=== PATIENT | female | born 1950 | race Caucasian/White ===

== ENCOUNTER 2020-10-30 05:20 | Observation (INO) ==
--- NOTE | 2020-09-29 13:12 | PAT Medication Instructions ---
Medication Instructions Date of Service September 29, 2020 Home Medications aspirin 81 mg PO QAM lisinopril 10 mg PO QAM pravastatin 20 mg PO QAM ascorbic acid (vitamin C) [Vitamin C] 500 mg PO QAM loratadine 10 mg PO QAM multivitamin 1 tab PO QAM DO NOT take the morning of surgery lisinopril 10 mg PO QAM ascorbic acid (vitamin C) [Vitamin C] 500 mg PO QAM loratadine 10 mg PO QAM multivitamin 1 tab PO QAM Take morning of surgery With a small sip of water, OTHERWISE NOTHING TO EAT OR DRINK AFTER MIDNIGHT: aspirin 81 mg PO QAM pravastatin 20 mg PO QAM Other Notes If you have any questions please call us at [phone] or [phone] or [phone] or [phone]
--- NOTE | 2020-10-01 14:04 | Anesthesiology Consultation ---
Date of Service October 01, 2020 Assessment & Plan (1) Encounter for pre-operative examination: Chart Review Chart Review: Acceptable Risk for Surgery (pending surgeon ordered PCP clearance and preop Covid testing ) and Patient seen in Pre Admission Testing Awaiting surgeon ordered PCP clearance scheduled 10/03/20 Per PAT appt on 10/01/20, patient denies any recent travel. No known Covid positive contacts or Covid related symptoms. No known Covid infection in the past 90 days. Did have Covid infection May 2020 (cold symptoms- have since resolved). Preop Covid testing scheduled 10/24/20= will await results. Educated on importance of self quarantining, social distancing and wearing mask in public both for the patient and household contacts. Teaching & Discussion Pre-Anesthesia Teaching/Discussion Notes: Instructed NPO after midnight before s urgery,except medications with 15 cc of water. Medication instructions provided according to the PAT guidelines. History Surgery Operation Date: 10/30/20 13:00 Proposed Procedures p Right Total Knee Arthroplasty - Martínez Palma MD Height/Weight Height: 4 ft 11 in Weight: 75.3 kg Allergies Allergy/AdvReac Type Severity Reaction Status Date / Time Sulfa (Sulfonamide Allergy Severe Hives Verified 09/29/20 07:33 Antibiotics) latex Allergy Intermediate Blister Verified 09/29/20 07:33 Medications Home Medications Medication Instructions Recorded Confirmed Last Taken aspirin 81 mg PO QAM 11/09/18 09/29/20 11/08/18 lisinopril 10 mg PO QAM 11/09/18 09/29/20 11/08/18 pravastatin 20 mg PO QAM 11/09/18 09/29/20 11/08/18 ascorbic acid (vitamin C) [Vitamin 500 mg PO QAM 09/29/20 09/29/20 Unknown C] loratadine 10 mg PO QAM 09/29/20 09/29/20 Unknown multivitamin 1 tab PO QAM 09/29/20 09/29/20 Unknown Past Medical History Medical History (Updated 10/01/20 @ 14:29 by Nicolasa Rodgers PA-C) History of COVID-May 27, 2020 Symptoms did improve- pt having mild cold symptoms since 09/22/20- improving Hyperlipidemia Hypertension Nausea and vomiting after administration of anesthetic agent just with hysterectomy Sleep apnea Questionable - pt was referred by dentist to get sleep study - does have snoring Will be seeing sleep medicine for initial evaluation end of September 2020 Exercise / Class Metabolic Activity II 4-5 Yardwork/Stairs/Walk up hill (one flight of stairs - no chest pain or SOB ) Past Family History Family History Other Family history unknown Past Surgical History Surgical History History of colonoscopy History of hysterectomy History of tooth extraction Hx of removal of cyst from thumb/neck> both benign Past Anesthesia History No Hx of Anesthesia Complications (with exception to hysterectomy - had PONV ) and Other (FH is unknown ) History of PONV History of PONV (with hysterectomy ) and Hx of Motion Sickness (in the past - improved with glasses ) Social History Smoking Status: Never smoker Do You Dip or Chew Tobacco: No Hx Alcohol Use: No Hx Substance Use: No substance use type: does not use Review of Systems Nasal congestion, post nasal drip, cough x 5-6 days- mild - improving. Patient denies chest pain, shortness of breath, dyspnea on exertion, reflux, wheezing, palpitations. No hx of seizures, stroke, [place]. No hx of blood clots or blood transfusions Physical Exam Vital Signs VITALS BP 165/101 (usually under better control- patient will monitor at home- has follow up with PCP 10/03/20) P 90 TEMP 98.6 SP02 98% RESP 16 Constitutional no acute distress ENMT Mouth: no TMJ clicking Thyromental Distance: < 3.5 Finger Breadths (3.0) Mallampati Class: II Missing molars Capped on molars Neck neck extension not limited Respiratory normal respiratory effort; no respiratory distress Auscultation: lungs clear to auscultation bilaterally; no wheezes Cardiovascular Rate/Rhythm: regular rate and regular rhythm Heart Sounds: no murmur Vessels: no carotid bruit Musculoskeletal Spine: no pain with cervical ROM Extremities: extremities normal to inspection Psychiatric Orientation: alert Testing Laboratory Results 10/01/20 14:26 10/01/20 14:26 PT 10.2 Seconds (9.0-12.0) 10/01/20 14:26 INR 1.0 (0.9-1.1) 10/01/20 14: APTT 25.3 Seconds (21.0-31.0) 10/01/20 14:26 Hemoglobin A1c 5.8 % (4.5-5.6) H 10/01/20 14:26 Urine Color Yellow 10/01/20 14:26 Urine Appearance Clear (Clear) 10/01/20 14:26 Urine pH 5.0 (4.5-7.5) 10/01/20 14:26 Ur Specific [place] 1.014 (1.000-1.030) 10/01/20 14:26 Urine Protein Negative (Negative) 10/01/20 14:26 Urine Glucose (UA) Negative (Negative) 10/01/20 14: Urine Ketones Negative (Negative) 10/01/20 14: Urine Nitrite Negative (Negative) 10/01/20 14:26 Ur Leukocyte Esterase Negative (Negative) 10/01/20 14:26 Blood Type O Positive 10/01/20 14:26 Antibody Screen NEGATIVE 10/01/20 14:26 Electrocardiogram Date: 10/01/20 Findings: + NSR @ (79bpm) Nonspecific T wave abnormality. Chest X-Ray Date: 10/01/20 Findings: + NAD There is mild aortic tortuosity.
--- NOTE | 2020-10-01 14:52 | XRay Report ---
XR chest Pre-admission PA/Lat CLINICAL HISTORY: Preoperative chest COMPARISON STUDY: No previous studies for comparison. FINDINGS: The cardiac and mediastinal contours are normal. There is mild aortic tortuosity. There is no failure. There is no focal pulmonary consolidation. There are no pleural effusions. Degenerative c hanges are present within the spine.[ IMPRESSION: No active disease in the chest. ACT 112: Negative or not required by law. Electronically signed by: Freeman Cooper M.D. 10/01/2020 2:51 PM
[2020-10-01 15:59] LABS: Appearance Urine Clear (Clear); Bilirubin Urine Negative (Negative); Blood Urine Negative (Negative); Color Urine Yellow; Glucose Urine UA Negative (Negative); Ketones Urine Negative (Negative); Leukocyte Esterase Urine Negative (Negative); Nitrite Urine Negative (Negative); Protein Urine Negative (Negative); Specific Gravity Urine 1.014 (1.000-1.030); Urobilinogen Urine Negative (Negative)
[2020-10-01 16:02] LABS: Basophils # (auto) 0.02 K/uL (0-0.2); Basophils % (auto) 0.5 %; Eosinophils # (auto) 0.11 K/uL (0-0.5); Eosinophils % (auto) 2.5 %; Hematocrit (blood only) 38.7 % (37-47); Hemoglobin 12.8 g/dL (12.0-16.0); Lymphocytes # (auto) 1.05 K/uL (1.2-3.4); Lymphocytes % (auto) 23.7 %; Mean Corpuscular Hemoglobin 28.2 pg (25-34); Mean Corpuscular Hgb Conc 33.1 g/dL (32-36); Mean Corpuscular Volume 85.2 fL (80-100); Mean Platelet Volume 9.9 fL (7.4-10.4); Monocytes # (auto) 0.29 K/uL (0.11-0.59); Monocytes % (auto) 6.5 %; Neutrophils # (auto) 2.96 K/uL (1.4-6.5); Neutrophils % (auto) 66.8 %; Platelet Count 209 K/uL (130-400); RDW Coefficient of Variation 13.2 % (11.5-14.5); RDW Standard Deviation 40.8 fL (36.4-46.3); Red Blood Count 4.54 M/uL (4.2-5.4); White Blood Count 4.43 K/uL (4.8-10.8)
[2020-10-01 16:07] LABS: Partial Thromboplastin Time 25.3 Seconds (21.0-31.0); Prothrombin Time 10.2 Seconds (9.0-12.0)
[2020-10-01 16:16] LABS: Albumin Level 3.8 gm/dl (3.4-5.0); BUN Creatinine Ratio 18.7 (10-20); Calcium 9.7 mg/dl (8.5-10.1); Creatinine Clr Calc Pharmacy 61.9 ml/min; Est GFR (Non-African American) 79.3 ml/min; Potassium 4.3 mmol/L (3.5-5.1)
[2020-10-02 06:10] LABS: Estimated Average Glucose 120 mg/dl; Hemoglobin A1C 5.8 % (4.5-5.6)
--- NOTE | 2020-10-02 22:22 | Electrocardiogram Report ---
Test Reason : Blood Pressure : / mmHG Vent. Rate : 079 BPM Atrial Rate : 079 BPM P-R Int : 156 ms QRS Dur : 084 ms QT Int : 386 ms P-R-T Axes : 058 054 065 degrees QTc Int : 442 ms Normal sinus rhythm Nonspecific T wave abnormality Abnormal ECG No previous ECGs available Confirmed by Breezy Cobb ([id number]) on 10/02/2020 10:22:36 PM Referred By: Martínez Palma Confirmed By:Breezy Cobb
--- NOTE | 2020-10-28 21:21 | History & Physical Report ---
Date of Service October 28, 2020 Assessment & Plan (1) Primary osteoarthritis of right knee: Treatment options discussed with patient. She has severe endstage OA right knee. She has failed conservative measures and would like to proceed with surgical intervention. Risks, benefits and alternatives to surgery including but not limited to infection, DVT, pain, stiffness, need for revision surgery, damage to blood vessels, damage to nerves, PE, , were discussed with the patient and they wish to proceed. Plan on right total knee arthroplasty at [facility] on 10/30/[address] Palma. Will plan on ASA 81g BID x 1 mo for DVT prophylaxis, as well as HHPT post discharge. All questions answered. F/u post operatively. History of Present Illness Chief Complaint: Right knee pain Primary Care Provider: Jimmy Ferreira MD 70 year old female with PMHx significant for HTN, high cholesterol, Raynaud's who presents with ongoing right knee pain and severe osteoarthritis right knee with bone loss. She has failed conservative measures. Pain interfering with her daily activities and ability to carry out leisure activities. She would like to proceed with surgical intervention. Patient denies headaches, sweats, fevers, chills, double vision, blurred vision, cough, sore throat, dysphagia, chest pain, sob, wheezing, n/v/d/c, numbness, tingling, fatigue, urinary symptoms, mood disorders. ROS positive for right knee pain and stiffness. Allergies Allergy/AdvReac Type Severity Reaction Status Date / Time Sulfa (Sulfonamide Allergy Severe Hives Verified 09/29/20 07:33 Antibiotics) latex Allergy Intermediate Blister Verified 09/29/20 07:33 Home Medications Medication Instructions Recorded Confirmed Type aspirin 81 mg PO QAM 11/09/18 09/29/20 History lisinopril 10 mg PO QAM 11/09/18 09/29/20 History pravastatin 20 mg PO QAM 11/09/18 09/29/20 History ascorbic acid (vitamin C) [Vitamin 500 mg PO QAM 09/29/20 09/29/20 History C] loratadine 10 mg PO QAM 09/29/20 09/29/20 History multivitamin 1 tab PO QAM 09/29/20 09/29/20 History Past Med/Surg History Medical History (Updated 10/28/20 @ 21:13 by Anmol Smaniotto) Elevated glucose Per records History of COVID-19 May 27, 2020 Symptoms did improve- pt having mild cold symptoms since 09/22/20- improving Hyperlipidemia Hypertension Nausea and vomiting after administration of anesthetic agent just with hysterectomy Raynauds syndrome Per records Sleep apnea Questionable - pt was referred by dentist to get sleep study - does have snoring Will be seeing sleep medicine for initial evaluation end of September 2020 Surgical History History of colonoscopy History of hysterectomy History of tooth extraction Hx of removal of cyst from thumb/neck> both benign Family History Other Family history unknown Social History Smoking Status: Never smoker Second Hand Exposure: No; Hx Alcohol Use: No Hx Substance Use: No Preferred Language: Faroese Communication Ability: Effective Label Remover Required: No Beliefs That Will Affect Care: None Current Living Situation: Spouse Feels Safe at Home: Yes Assistive Devices: Glasses Review of Systems All systems reviewed & are unremarkable except as noted in HPI & below Physical Exam Constitutional: well developed and well nourished; no acute distress Eyes: PERRL, conjunctivae normal, anicteric sclerae ENMT: external ear and nose normal, oropharynx normal Neck: trachea midline, no thyromegaly Respiratory: normal respiratory effort, lungs clear to auscultation Cardiovascular: RRR, no murmur, no edema Musculoskeletal: Right knee: Valgus alignment. Moderate effusion. Lateral joint line tenderness. Positive valgus stress, positive Kathy's. ROM 5-90 degrees. Skin: no rashes, warm and dry Neurologic: patellar DTR's 2+ bilat, sensation intact Psychiatric: A+Ox3, euthymic affect Results & Data ([facility]) Laboratory Results Lab Results 10/01/20 10/01/20 10/01/20 Range/Units 14:26 14:26 14:26 WBC 4.43 L (4.8-10.8) K/uL RBC 4.54 (4.2-5.4) M/uL Hgb 12.8 (12.0-16.0) g/dL Hct 38.7 (37-47) % MCV 85.2 (80-100) fL MCH 28.2 (25-34) pg MCHC 33.1 (32-36) g/dL RDW Std Deviation 40.8 (36.4-46.3) fL RDW Coeff of Erika 13.2 (11.5-14.5) % Plt Count 209 (130-400) K/uL MPV 9.9 (7.4-10.4) fL Immature Gran % (Auto) 0.0 % Neut % (Auto) 66.8 % Lymph % (Auto) 23.7 % [place] % (Auto) 6.5 % Eos % (Auto) 2.5 % Baso % (Auto) 0.5 % Neut # (Auto) 2.96 (1.4-6.5) K/uL Lymph # (Auto) 1.05 L (1.2-3.4) K/uL [place] # (Auto) 0.29 (0.11-0.59) K/uL Eos # (Auto) 0.11 (0-0.5) K/uL Baso # (Auto) 0.02 (0-0.2) K/uL Immature Gran # (Auto) 0.00 (0.00-0.02) K/uL PT (9.0-12.0) Seconds INR (0.9-1.1) APTT (21.0-31.0) Seconds PTT Ratio Sodium 143 (136-145) mmol/L Potassium 4.3 (3.5-5.1) mmol/L Chloride 110 H (98-107) mmol/L Carbon Dioxide 29 (21-32) mmol/L Anion Gap 4.0 (3-11) BUN 14 (7-18) mg/dl Creatinine 0.77 (0.6-1.2) mg/dl Est Cr Clr Drug Dosing 61.9 ml/min Est GFR ( Amer) 92.0 ml/min Est GFR (Non-Af Amer) 79.3 ml/min BUN/Creatinine Ratio 18.7 (10-20) Glucose 149 H (70-99) mg/dl Estimat Average Glucose mg/dl Hemoglobin A1c (4.5-5.6) % Calcium 9.7 (8.5-10.1) mg/dl Albumin 3.8 (3.4-5.0) gm/dl Urine Color Urine Appearance (Clear) Urine pH (4.5-7.5) Ur Specific [place] (1.000-1.030) Urine Protein (Negative) Urine Glucose (UA) (Negative) Urine Ketones (Negative) Urine Blood (Negative) Urine Nitrite (Negative) Urine Bilirubin (Negative) Urine Urobilinogen (Negative) Ur Leukocyte Esterase (Negative) Blood Type O Positive Antibody Screen NEGATIVE 10/01/20 10/01/20 10/01/20 Range/Units 14:26 14:26 14:26 WBC (4.8-10.8) K/uL RBC (4.2-5.4) M/uL Hgb (12.0-16.0) g/dL Hct (37-47) % MCV (80-100) fL MCH (25-34) pg MCHC (32-36) g/dL RDW Std Deviation (36.4-46.3) fL RDW Coeff of Erika (11.5-14.5) % Plt Count (130-400) K/uL MPV (7.4-10.4) fL Immature Gran % (Auto) % Neut % (Auto) % Lymph % (Auto) % [place] % (Auto) % Eos % (Auto) % Baso % (Auto) % Neut # (Auto) (1.4-6.5) K/uL Lymph # (Auto) (1.2-3.4) K/uL [place] # (Auto) (0.11-0.59) K/uL Eos # (Auto) (0-0.5) K/uL Baso # (Auto) (0-0.2) K/uL Immature Gran # (Auto) (0.00-0.02) K/uL PT 10.2 (9.0-12.0) Seconds INR 1.0 (0.9-1.1) APTT 25.3 (21.0-31.0) Seconds PTT Ratio 1.0 Sodium (136-145) mmol/L Potassium (3.5-5.1) mmol/L Chloride (98-107) mmol/L Carbon Dioxide (21-32) mmol/L Anion Gap (3-11) BUN (7-18) mg/dl Creatinine (0.6-1.2) mg/dl Est Cr Clr Drug Dosing ml/min Est GFR ( Amer) ml/min Est GFR (Non-Af Amer) ml/min BUN/Creatinine Ratio (10-20) Glucose (70-99) mg/dl Estimat Average Glucose 120 mg/dl Hemoglobin A1c 5.8 H (4.5-5.6) % Calcium (8.5-10.1) mg/dl Albumin (3.4-5.0) gm/dl Urine Color Yellow Urine Appearance Clear (Clear) Urine pH 5.0 (4.5-7.5) Ur Specific [place] 1.014 (1.000-1.030) Urine Protein Negative (Negative) Urine Glucose (UA) Negative (Negative) Urine Ketones Negative (Negative) Urine Blood Negative (Negative) Urine Nitrite Negative (Negative) Urine Bilirubin Negative (Negative) Urine Urobilinogen Negative (Negative) Ur Leukocyte Esterase Negative (Negative) Blood Type Antibody Screen Diagnostic Findings Right knee: Four-view x-rays right knee demonstrate he has severe bilateral knee osteoarthritis. The right knee has valgus alignment, 12-15 degrees of valgus. He is bone on bone on the lateral compartment with subluxation of the femur medially on the tibia, tricompartmental osteoarthritis, loose bodies in the superior compartment. The patella is laterally aligned, bone on bone in the patellofemoral joint as well. She has some osteopenia of the bones.
[2020-10-30] MEDS ORDERED: LR 500ML BOLUS, THEN 15ML/HR IV SCH (06:00)
[2020-10-30] MEDS ORDERED: dexAMETHasone 4 MG TAB PO SCH (06:00)
[2020-10-30] MEDS ORDERED: ACETAMINOPHEN 500 MG TAB PO SCH (06:00)
[2020-10-30] MEDS ORDERED: FAMOTIDINE 20 MG TAB PO SCH (06:00)
[2020-10-30] MEDS ORDERED: TRANEXAMIC ACID 1,000 MG **IV Pre-op IV SCH (06:00)
[2020-10-30] MEDS ORDERED: ROPIVACAINE 0.5% HCL/PF 150 MG, BUPIVACAINE 0.75% MPF 20 ML, EPINEPHrine 30MG/30ML (OR ... INSTIL SCH (06:00)
[2020-10-30] MEDS ORDERED: METOCLOPRAMIDE HCL 10 MG TABLET PO SCH (06:00)
[2020-10-30] MEDS ORDERED: GABAPENTIN 300 MG CAP PO SCH (06:00)
[2020-10-30] MEDS ORDERED: TRANEXAMIC ACID 1,000 MG **IV Intra-op IV SCH (06:00)
[2020-10-30] MEDS ORDERED: fentaNYL citrate 100 MCG/2 ML VIAL ONE (06:23)
[2020-10-30] MEDS ORDERED: MIDAZOLAM HCL 1 MG/ML 2ML VIAL ONE (06:23)
[2020-10-30] MEDS ORDERED: DEXAMETHASONE SOD INJ 4 MG/ML VIAL ONE (06:25)
[2020-10-30] MEDS ORDERED: EPINEPHrine INJ 1 MG/ML AMP ONE (06:25)
[2020-10-30] MEDS ORDERED: BUPIVACAINE 0.25% 30 ML VIAL ONE (06:25)
[2020-10-30] MEDS ORDERED: BUPIVACAINE 0.5 % 5 MG/1 ML PF 10ML VIAL ONE (06:25)
[2020-10-30] MEDS ORDERED: ORTHO JOINT ANESTHETIC ONE (06:37)
--- NOTE | 2020-10-30 07:00 | History & Physical Bridge Note ---
Date of Service October 30, 2020 History & Physical Bridge Note I have examined the patient, reviewed the History & Physical and in the interval since the performance of the History & Physical I have noted the following changes of clinical significance: no changes noted
[2020-10-30] MEDS: ceFAZolin 1000MG 1,000 MG/7.5 ML SYR IV SCH ×4 (07:18→23:32)
[2020-10-30] MEDS ORDERED: PROPOFOL IV EMULSION 10 MG/ML 20 ML VIAL IV ONE ×2 (07:30)
[2020-10-30] MEDS ORDERED: PHENYLEPHRINE HCL 10 MG/ML VIAL ONE (08:04)
--- NOTE | 2020-10-30 09:10 | Post Operative Brief Note ---
Immediate Post Op Note v1 Date of Surgery October 30, 2020 Pre & Post Diagnosis Operation Date: 10/30/20 07:00 Pre-Op Diagnosis: Right Knee Primary Osteoarthritis Post-Op Diagnosis: Right Knee Primary Osteoarthritis I identified the patient and participated in the time-out.: Yes Procedure Operation Date: 10/30/20 07:00 Actual Procedures p Right Total Knee Arthroplasty(Right) - Martínez Palma MD Surgeon Martínez Palma MD Hat Steamer Jose Carlos LEONARD Estimated Blood Loss 5 Findings Consistent with Post-Op Diagnosis Specimens Bone cuts Drains Hemovac Drain Anesthesia Type Spinal MAC Complications none Disposition Accompanied Patient To Recovery: No Disposition: Recovery Room Overlapping Procedure I was present for: the critical portions of procedure. Back up surgeon: was not required during procedure.
[2020-10-30] MEDS ORDERED: ePHEDrine sulfate 50 MG/ML AMP IV PRN (09:45)
[2020-10-30] MEDS ORDERED: ONDANSETRON INJ 2 MG/ML 2 ML VIAL IV PRN ×2 (09:45→11:41)
[2020-10-30] MEDS ORDERED: fentaNYL citrate 100 MCG/2 ML VIAL IV PRN (09:45)
[2020-10-30] MEDS ORDERED: ATROPINE SULFATE 0.1 MG/ML 10ML SYR IV PRN (09:45)
[2020-10-30] MEDS ORDERED: MEPERIDINE HCL 25 MG/ML CARP/VIAL ONE (10:03)
[2020-10-30] MEDS ORDERED: MEPERIDINE HCL 25 MG/ML CARP/VIAL IV ONE (10:09)
--- NOTE | 2020-10-30 11:00 | XRay Report ---
XR knee RT 1 or 2V routine HISTORY: 70 years-old Female Surgical Post Op right knee total joint arthroplasty COMPARISON: None TECHNIQUE: 2 views of the right knee FINDINGS: Right knee total joint arthroplasty with patellar resurfacing. Anterior midline skin kaylah are note d along with expected postsurgical soft tissue swelling and deep tissue air with surgical drainage ca theter. No acute fracture or opaque foreign body. IMPRESSION: Right knee total joint arthroplasty with expected postoperative changes. ACT 112: Negative or not required by law. The above report was generated using voice recognition software. It may contain grammatical, syntax o r spelling errors. Electronically signed by: Puneet Mojica M.D. 10/30/2020 10:59 AM
[2020-10-30] MEDS ORDERED: oxyCODONE HCL IR 5 MG TAB (IMMEDIATE RELEASE) PO PRN (11:41)
[2020-10-30] MEDS ORDERED: bisacodyL 10 MG SUPP PR PRN (11:41)
[2020-10-30] MEDS ORDERED: METOCLOPRAMIDE HCL INJ 5 MG/ML 2 ML VIAL IV PRN (11:41)
[2020-10-30] MEDS ORDERED: HYDROmorphone INJ 0.5 MG/0.5 ML SYR IV PRN (11:41)
[2020-10-30] MEDS ORDERED: NALOXONE HCL 0.4 MG/1 ML VIAL/CARP IV PRN (11:41)
[2020-10-30] MEDS ORDERED: MAGNESIUM HYDROXIDE SUSP 30 ML UDC PO PRN (11:41)
--- NOTE | 2020-10-30 13:13 | Consultation ---
Date of Consultation October 30, 2020 Assessment & Plan (1) Primary osteoarthritis of right knee: This is a 70-year-old female who has significant past medical history of HTN, HLD, Raynaud's, history of COVID-19, prediabetes, suspected TRAVIS currently undergoing evaluation who presents for elective R TKA by Dr. Palma. POD #0 s/p R TKA EBL 5; hemovac 30ml tolerated procedure well Pain/wound management per Ortho Activity and therapy as prescribed by Ortho Encourage incentive spirometry Monitor H&H, preop hemoglobin 12.8 (2) Hypertension: Continue lisinopril, will place hold parameters (3) Hyperlipidemia: Continue pravastatin (4) Prediabetes: Preop labs reveal A1c 5.8 Encourage lifestyle and diet modification (5) DVT prophylaxis: ASA twice daily per Ortho Dispo: Per attending Full code PCP: Jhon Patient was seen and examined in collaboration with Dr. Dinh, please see addendum Thank you for this consultation. We will follow the patient with you during their hospital stay. You can reach a member of the [facility] Hospitalist Team 13/12 via hospitalist role on tiger text. Supervising Physician Co-Signing Physician Notes Patient seen and examined by me, care coordinated with Hawa Baker PA-C, please refer to her note above for further detail. Pt is a 70 y/o female with HTN, HLD, Raynaud's, history of COVID-19, prediabetes, suspected TRAVIS (currently undergoing evaluation) who is now s/p right knee total arthroplasty by Dr. Palma. She currently denies fever, chills, sweats, lightheadedness, dizziness, chest pain, shortness of breath, cough, nausea, vomiting, abdominal pain. Currently sitting up in the chair, in no acute distress. Ambulated to the bathroom, she is urinating without difficulty. Ate lunch, denies any nausea afterwards. She is alert and oriented and answering questions appropriately. Lungs are clear to auscultation bilaterally without any wheezing rhonchi or crackles. Heart sounds regular. Abdomen soft, nontender nondistended, obese. Right lower extremity in dressings. Hypertension controlled on lisinopril. Hyperlipidemia controlled with pravastatin. She does take a baby aspirin daily for cardiac prophylaxis. We will monitor hemodynamic status and H&H. Connie Dinh MD History of Present Illness Requesting Physician: Dr. Palma Reason for Consultation: Post op med management Attending Physician: Martínez Palma MD History of Present Illness This is a 70-year-old female who has significant past medical history of HTN, HLD, Raynaud's, history of COVID-19, prediabetes, suspected TRAVIS currently undergoing evaluation who presents for elective right knee total arthroplasty by Dr. Palma. We have been consulted for postop medical management. She tolerated procedure well and offers no acute concerns. She denies fever, chills, sweats, lightheadedness, dizziness, chest pain, shortness of breath, cough, nausea, vomiting, abdominal pain. Prior to procedure she denies change in bowel or urinary habits. In regards patient hypertension it is controlled on lisinopril. Hyperlipidemia controlled with pravastatin. She does take a baby aspirin daily for cardiac prophylaxis. Allergies Allergy/AdvReac Type Severity Reaction Status Date / Time Sulfa (Sulfonamide Allergy Severe Hives Verified 09/29/20 07:33 Antibiotics) latex Allergy Intermediate Blister Verified 09/29/20 07:33 Home Medications Medication Instructions Recorded Confirmed Type aspirin 81 mg PO QAM 11/09/18 10/30/20 History lisinopril 10 mg PO QAM 11/09/18 10/30/20 History pravastatin 20 mg PO QAM 11/09/18 10/30/20 History ascorbic acid (vitamin C) [Vitamin 500 mg PO QAM 09/29/20 10/30/20 History C] loratadine 10 mg PO QAM 09/29/20 10/30/20 History multivitamin 1 tab PO QAM 09/29/20 10/30/20 History Patient History Medical History (Updated 10/30/20 @ 13:08 by Hawa Baker PA-C) Elevated glucose Per records History of COVID-19 May 27, 2020 Symptoms did improve- pt having mild cold symptoms since 09/22/20- improving Hyperlipidemia Hypertension Nausea and vomiting after administration of anesthetic agent just with hysterectomy Prediabetes Raynauds syndrome Per records Sleep apnea Questionable - pt was referred by dentist to get sleep study - does have snoring Will be seeing sleep medicine for initial evaluation end of September 2020 Surgical History History of colonoscopy History of hysterectomy History of tooth extraction Hx of removal of cyst from thumb/neck> both benign Family History Mother Myocardial infarction, Onset Age: 60 Cancer Uterine Father Colorectal cancer Social History Smoking Status: Never smoker Second Hand Exposure: No; Do You Dip or Chew Tobacco: No; Tobacco Cessation Education Requested by Patient: No Hx Alcohol Use: No Hx Substance Use: No Preferred Language: Portuguese Communication Ability: Effective Audio Production Instructor Required: No Beliefs That Will Affect Care: None marital status: Current Living Situation: Spouse Other Information That Helps Us Care for You: No Feels Safe at Home: Yes Safety Concerns: Feels Safe At This Time Assistive Devices: Walker Review of Systems Review of Systems: All systems reviewed & are unremarkable except as noted in HPI & below Physical Exam Physical Exam: Constitutional: WD/WN, vitals as above, NAD, sitting up in bed, pleasant, conversing easily Head: Normocephalic, Atraumatic Eyes: PERRL, conjunctivae normal, anicteric sclerae ENMT: external ear and nose normal, oropharynx normal Neck: trachea midline, no thyromegaly normal visual inspection Respiratory: normal respiratory effort, lungs clear to auscultation, no wheeze, rales, rhonchi. Normal insp/exp effort, no accessory muscle use Cardiovascular: RRR, no murmur, no edema Vessels: no JVD or carotid bruit Chest: normal inspection of chest Abdomen: normal bowel sounds, soft, nontender, no hepatosplenomegaly Musculoskeletal: no cyanosis or clubbing, R knee dressing CDI, hemovac in place, ice inplace, extremities motor strength 5/5 Skin: no rashes, warm and dry normal turgor Neurologic: PERRL, EOMI, accommodation nl, no face palsy, no dysarthria CN's II-XI intact bilaterally and moves all extremities Psychiatric: A+Ox3, euthymic affect Lymphatic: no cervical or axillary lymphadenopathy : deferred Results & Data ([facility]) Vital Signs (Past 12 Hours) Vital Signs Temp Pulse Pulse Resp BP Pulse Ox 10/30/20 11:45 36.5 C 79 16 121/73 100 10/30/20 11:15 36.4 C L 82 16 134/82 97 10/30/20 10:30 36.6 C 84 16 127/74 96 10/30/20 10:20 84 16 125/75 96 10/30/20 10:10 87 18 131/70 99 10/30/20 10:00 94 H 18 138/66 99 10/30/20 09:50 36.7 C 99 H 14 136/81 95 10/30/20 06:34 86 20 179/87 H 98 10/30/20 05:56 36.8 C 96 H 20 181/98 H 97 Laboratory Results Preoperative labs 10/01/2020 WBC 4.4k, H&H 12.8 and 30.7, platelet 209 Sodium 143, K4.3, chloride 110, BUN 14, creatinine 1.77 A1c 5.8 Diagnostic Findings Chest X-Ray 10/01/20 08:25 XR chest Pre-admission PA/Lat CLINICAL HISTORY: Preoperative chest COMPARISON STUDY: No previous studies for comparison. FINDINGS: The cardiac and mediastinal contours are normal. There is mild aortic tortuosity. There is no failure. There is no focal pulmonary consolidation. There are no pleural effusions. Degenerative changes are present within the spine.[ IMPRESSION: No active disease in the chest. ACT 112: Negative or not required by law. Electronically signed by: Freeman Cooper M.D. 10/01/2020 2:51 PM Knee X-Ray 10/30/20 09:53 XR knee RT 1 or 2V routine HISTORY: 70 years-old Female Surgical Post Op right knee total joint arthroplasty COMPARISON: None TECHNIQUE: 2 views of the right knee FINDINGS: Right knee total joint arthroplasty with patellar resurfacing. Anterior midline skin kaylah are noted along with expected postsurgical soft tissue swelling and deep tissue air with surgical drainage catheter. No acute fracture or opaque foreign body. IMPRESSION: Right knee total joint arthroplasty with expected postoperative changes. ACT 112: Negative or not required by law. The above report was generated using voice recognition software. It may contain grammatical, syntax or spelling errors. Electronically signed by: Puneet Mojica M.D. 10/30/2020 10:59 AM Medications Administered Medication List Acetaminophen (Acetaminophen 500 Mg Tab) 1,000 mg PO PREOP RUSSEL Stop: 10/30/20 18:00 Last Admin: 10/30/20 06:07 Dose: 1,000 mg Documented by: [id number] Dexamethasone (Dexamethasone 4 Mg Tab) 8 mg PO PREOP RUSSEL Stop: 10/30/20 18:00 Last Admin: 10/30/20 06:07 Dose: 8 mg Documented by: [id number] Famotidine (Famotidine 20 Mg Tab) 20 mg PO PREOP RUSSEL Stop: 10/30/20 18:00 Last Admin: 10/30/20 06:07 Dose: 20 mg Documented by: [id number] Gabapentin (Gabapentin 300 Mg Cap) 300 mg PO PREOP [facility]USSEL Stop: 10/30/20 18:00 Last Admin: 10/30/20 06:08 Dose: 300 mg Documented by: [id number] Cefazolin Sodium (Ancef 1000mg) 1,000 mg in 7.5 mls @ 2.5 mls/min IV PREOP RUSSEL; Protocol Stop: 10/30/20 18:00 Last Admin: 10/30/20 07:30 Dose: 2.5 mls/min Documented by: [id number] Tranexamic Acid (Tranexamic Acid / 0.7% Nacl) 1,000 mg in 100 mls @ 600 mls/hr IV TODAY@0600 RUSSEL Stop: 10/30/20 18:00 Last Infusion: 10/30/20 07:18 Dose: 0 mls/hr Documented by: [id number] Admin: 10/30/20 07:03 Dose: 600 mls/hr Documented by: [id number] Tranexamic Acid (Tranexamic Acid / 0.7% Nacl) 1,000 mg in 100 mls @ 600 mls/hr IV TODAY@0600 RUSSEL Stop: 10/30/20 18:00 Last Infusion: 10/30/20 09:02 Dose: 0 mls/hr Documented by: [id number] Admin: 10/30/20 08:45 Dose: 600 mls/hr Documented by: [id number] Lactated Ringer's (Lr) 1,000 mls @ 15 mls/hr IV .Q24H RUSSEL Stop: 10/30/20 18:00 Last Infusion: 10/30/20 07:20 Dose: 15 mls/hr Documented by: [id number] Admin: 10/30/20 06:07 Dose: 15 mls/hr Documented by: [id number] Metoclopramide HCl (Metoclopramide Hcl 10 Mg Tablet) 10 mg PO PREOP [facility] Stop: 10/30/20 18:00 Last Admin: 10/30/20 06:07 Dose: 10 mg Documented by: [id number] Discontinued Medications Ropivacaine 150 mg/Bupivacaine HCl 20 ml/Epinephrine HCl 0.15 mg/Ketorolac Tromethamine 30 mg/Dexamethasone 4 mg/ Ketamine HCl 10 mg/ Clonidine HCl 100 mcg/ Sodium Chloride 88.35 mls @ 0 mls/hr INSTIL TODAY@0600 [facility]; Protocol Stop: 10/30/20 06:01 Last Admin: 10/30/20 07:59 Dose: 93.35 mls/hr Documented by: [id number] Meperidine HCl (Meperidine Hcl 25 Mg/Ml Carp/Vial) Confirm Administered Dose 25 mg .ROUTE .[employer] ONE Stop: 10/30/20 10:04 Last Admin: 10/30/20 12:03 Dose: Not Given Documented by: [id number] Meperidine HCl (Meperidine Hcl 25 Mg/Ml Carp/Vial) 12.5 mg IV ONCE ONE Stop: 10/30/20 10:10 Last Admin: 10/30/20 10:08 Dose: 12.5 mg Documented by: [id number] Miscellaneous (Ortho Joint Anesthetic ) Confirm Administered Dose 1 ea .ROUTE .[employer] ONE Stop: 10/30/20 06:38 Last Admin: 10/30/20 07:59 Dose: 1 ea Documented by: [id number] ECG Rate (beats per minute): 79 Rhythm: normal sinus
[2020-10-30] MEDS: SODIUM CHLORIDE 0.9% 1000ML 1,000 ML IV SCH ×2 (15:49→23:32)
[2020-10-30] MEDS: ACETAMINOPHEN 500 MG TAB PO SCH ×2 (15:49→20:47)
--- NOTE | 2020-10-30 16:29 | Anesthesiology Progress Note ---
Date of Service October 30, 2020 Anesthesia Post Procedure Vital Signs Vital Signs: Temp Pulse Pulse Resp BP Pulse Ox 10/30/20 13:45 36.4 C L 75 16 133/78 97 10/30/20 11:45 36.5 C 79 16 121/73 100 10/30/20 11:15 36.4 C L 82 16 134/82 97 10/30/20 10:30 36.6 C 84 16 127/74 96 10/30/20 10:20 84 16 125/75 96 10/30/20 10:10 87 18 131/70 99 10/30/20 10:00 94 H 18 138/66 99 10/30/20 09:50 36.7 C 99 H 14 136/81 95 10/30/20 06:34 86 20 179/87 H 98 10/30/20 05:56 36.8 C 96 H 20 181/98 H 97 Transfer of Care Handoff Completed per policy Notes Mental Status: alert / awake / arousable Patient Amnestic to Procedure: Yes Nausea / Vomiting: adequately controlled Pain: adequately controlled Airway Patency, RR, SpO2: stable & adequate BP & HR: stable & adequate Hydration State: stable & adequate Neuraxial Anesthesia: was administered and sensory block is resolving Anesthetic Complications: no major complications apparent and Pt Satisfied with anesthetic care
--- NOTE | 2020-10-30 17:36 | Operative Report ---
Post Operative Report Pre & Post Diagnosis Operation Date: 10/30/20 07:00 Pre-Op Diagnosis: Right Knee Primary Osteoarthritis Post-Op Diagnosis: Right Knee Primary Osteoarthritis I identified the patient and participated in the time-out.: Yes Procedure Operation Date: 10/30/20 07:00 Actual Procedures p Right Total Knee Arthroplasty(Right), superficial wound VAC- Martínez Palma MD Surgeon Martínez Palma MD Upper Cutter Jose Carlos LEONARD Estimated Blood Loss 5 Findings Consistent with Post-Op Diagnosis Specimens Bone cuts Drains 2 Hemovac Anesthesia Type MAC Spinal Regional Complications none Disposition Accompanied Patient To Recovery: No Disposition: Recovery Room Indications 70-year-old female with very severe osteoarthritis of her right knee with valgus knee bone loss and lateral compartment severe tricompartmental osteoarthritis with large loose bodies Description of Procedure Patient taken to the operating room the size under spinal MAC regional anesthesia. Patient was placed supine on the operating table. A pneumatic tourniquet was placed about the moderately obese upper thigh. The right lower extremity was prepped and draped in sterile fashion. Knee exam demonstrated valgus knee [id number] crepitation 0 through 115 degrees range of motion. The leg was elevated exsanguinated with an Esmarch bandage and pneumatic tourniquet was raised to 300 millimeters of mercury. Skin incised sharply in longitudinal fashion. Subcutaneous flaps elevated. Incision was made through the medial retinaculum extending up in the mid third of the quadriceps tendon and down to the medial tibial tubercle. Intra-articular findings demonstrated severe tricompartmental osteoarthritis [id number] lateral compartment with bone loss and lateral tibial plateau hypoplastic lateral femoral condyle grade 4 patellofemoral and lateral compartment osteoarthritis very large suprapatellar loose bodies large posterior medial lateral osteophytes.. The [email or web address] total knee arthroplasty system was used. First a very large osteophytes removed from supra patella region and on the superior aspect of the patella. To expose the knee the infrapatellar fat pad was resected. The meniscal remnants and cruciate ligaments were resected. The anterior fat pad over the femur in the area of the anterior flange of the femoral component was resected. Lateral synovial bands release. The femur was exposed. An intramedullary drill hole was made into the canal. A guide karen was placed. Distal femoral cutting guide was adjusted to resect a 6 degree valgus cut with 8 millimeters distal femur resected. The knee was extended and a subperiosteal peel lateral release was performed around the patella. Some of the very large osteophytes were resected. There is significant bone loss of the patella mainly laterally. We reproduce the normal patella width by making a final patella cut to 14 mm width of patella with a freehand cut technique. The 3 drill holes were made and the excess lateral facet was beveled off to prevent any impingement. Attention was taken back to the femur which was exposed with retractors and the femoral sizing guide was pinned in position. The drill holes were placed in 3 of external rotation to match epicondylar axis. Femur sized for a 3 posterior stabilized component. The 4-in-1 cutting block was placed and then the anterior posterior and chamfer cuts are made. The tibia was then subluxed. The external tibial cutting guide was just to make a perpendicular cut to the long axis of the tibia below the most deficient bone loss side. A lamina marketing editor was used and the flexion extension gaps were balanced. All posterior osteophytes removed. All meniscal remnants were resected. The tibia exposed and the trial tibial component size 2 was externally rotated in line with the tibial tubercle and pinned in position. The punch for and drill for the universal baseplate stem was used. The notch cutting device was centered appropriately and the femoral notch cut was made. The femoral trial was inserted. Trial tibial inserts were placed and size 11 posterior stabilized gave balanced ligaments through flexion and extension. Patella tracking was assessed. The patella tracked centrally. The trial components were then removed and the orthomix anesthetic cocktail was injected per protocol. The knee was then copiously irrigated with pulsatile lavage saline solution. Final components were then cemented with Simplex cement. Final components were Niyah triathlon size 3 right posterior stabilized femoral component, size 2 universal tibial baseplate, X3 polyethylene 2 x 11 mm tibial bearing insert posterior stabilized, X3S 36 x 10 mm patella. While the cement cured the Betadine soak was used per protocol. After cement cured further pulsatile lavage irrigation performed and 2 Hemovac drains were brought out laterally. The quadriceps tendon and medial retinaculum were closed with figure of 8 #1 Vicryl sutures. The knee was taken through full range of motion and the repair was secure. The subcutaneous tissues were closed with 2-0 Vicryl sutures. Skin was closed with kaylah. Katty and Acticoat superficial wound VAC was applied. Patient procedure well. Jose Carlos LEONARD was my physician assistant production editor who assisted in patient positioning prepping and draping,leg positioning ,soft tissue retraction and instrument management and participated in the closing and application superficial wound VAC and will participate in postoperative care of the patient. The patient tolerated the procedure well. I attest to the content of the Intraoperative Record and any orders documented therein. Any exceptions are noted below.
[2020-10-30] MEDS: ASPIRIN 81 MG ECTAB PO SCH (20:45)
[2020-10-30] MEDS: DOCUSATE SODIUM 100 MG CAP PO SCH (20:46)
[2020-10-30] MEDS ORDERED: SENNA 8.6 MG TAB PO SCH (21:00)
[2020-10-31] MEDS: ACETAMINOPHEN 500 MG TAB PO SCH (06:14)
[2020-10-31 06:15] LABS: Hemoglobin 10.9 g/dL (12.0-16.0); Mean Corpuscular Hemoglobin 28.4 pg (25-34); Mean Corpuscular Hgb Conc 34.1 g/dL (32-36); Mean Corpuscular Volume 83.3 fL (80-100); Mean Platelet Volume 9.2 fL (7.4-10.4); Platelet Count 174 K/uL (130-400); RDW Coefficient of Variation 13.4 % (11.5-14.5); RDW Standard Deviation 40.7 fL (36.4-46.3); Red Blood Count 3.84 M/uL (4.2-5.4); White Blood Count 10.65 K/uL (4.8-10.8)
[2020-10-31 06:41] LABS: BUN Creatinine Ratio 23.8 (10-20); Calcium 8.9 mg/dl (8.5-10.1); Creatinine Clr Calc Pharmacy 79.3 ml/min; Est GFR (African American) 108.5 ml/min; Est GFR (Non-African American) 93.7 ml/min; Potassium 3.9 mmol/L (3.5-5.1)
--- NOTE | 2020-10-31 07:55 | Orthopedic Progress Note ---
Date of Service October 31, 2020 Assessment & Plan (1) Primary osteoarthritis of right knee: POD#1 Right TKA -Pain management -PT/OT -DVT prophylaxis-SCDs, TEDs, ASA 81mg BID -AM labs-hemoglobin at 10.9 from 12.8 acute blood loss anemia due to surgical loss vs dilutional effect -D/C planning-home with HHPT, plan on discharge today if does well with PT. Admission and Anticipated Discharge Date Admission Date: October 30, 2020 Subjective POD#1 from right TKA. She is doing well this morning. Pain well controlled. No complaints. Denies chest pain, sob, dizziness, n/v/d, fever or chills. Review of Systems Review of Systems: All systems reviewed & are unremarkable except as noted in HPI & below Physical Exam Physical Exam: right knee dressing is c/d/i, no calf tenderness, toes mobile with good dorsiflexion. Distally n/v status and sensation intact. Constitutional: well developed and well nourished; no acute distress Results & Data ([facility]) Vital Signs (Past 12 Hours) Vital Signs Temp Pulse Pulse Resp BP BP Pulse Ox 10/31/20 07:37 36.6 C 80 18 132/80 99 10/31/20 03:01 36.5 C 71 16 152/84 H 98 10/30/20 23:04 36.4 C L 71 16 128/74 97 10/30/20 20:11 36.5 C 71 16 106/66 96 Laboratory Results Lab Results 10/01/20 10/01/20 10/01/20 Range/Units 14:26 14:26 14:26 WBC 4.43 L (4.8-10.8) K/uL RBC 4.54 (4.2-5.4) M/uL Hgb 12.8 (12.0-16.0) g/dL Hct 38.7 (37-47) % MCV 85.2 (80-100) fL MCH 28.2 (25-34) pg MCHC 33.1 (32-36) g/dL RDW Std Deviation 40.8 (36.4-46.3) fL RDW Coeff of Erika 13.2 (11.5-14.5) % Plt Count 209 (130-400) K/uL MPV 9.9 (7.4-10.4) fL Immature Gran % (Auto) 0.0 % Neut % (Auto) 66.8 % Lymph % (Auto) 23.7 % [place] % (Auto) 6.5 % Eos % (Auto) 2.5 % Baso % (Auto) 0.5 % Neut # (Auto) 2.96 (1.4-6.5) K/uL Lymph # (Auto) 1.05 L (1.2-3.4) K/uL [place] # (Auto) 0.29 (0.11-0.59) K/uL Eos # (Auto) 0.11 (0-0.5) K/uL Baso # (Auto) 0.02 (0-0.2) K/uL Immature Gran # (Auto) 0.00 (0.00-0.02) K/uL PT (9.0-12.0) Seconds INR (0.9-1.1) APTT (21.0-31.0) Seconds PTT Ratio Sodium 143 (136-145) mmol/L Potassium 4.3 (3.5-5.1) mmol/L Chloride 110 H (98-107) mmol/L Carbon Dioxide 29 (21-32) mmol/L Anion Gap 4.0 (3-11) BUN 14 (7-18) mg/dl Creatinine 0.77 (0.6-1.2) mg/dl Est Cr Clr Drug Dosing 61.9 ml/min Est GFR ( Amer) 92.0 ml/min Est GFR (Non-Af Amer) 79.3 ml/min BUN/Creatinine Ratio 18.7 (10-20) Glucose 149 H (70-99) mg/dl Estimat Average Glucose mg/dl Hemoglobin A1c (4.5-5.6) % Calcium 9.7 (8.5-10.1) mg/dl Albumin 3.8 (3.4-5.0) gm/dl Urine Color Urine Appearance (Clear) Urine pH (4.5-7.5) Ur Specific [place] (1.000-1.030) Urine Protein (Negative) Urine Glucose (UA) (Negative) Urine Ketones (Negative) Urine Blood (Negative) Urine Nitrite (Negative) Urine Bilirubin (Negative) Urine Urobilinogen (Negative) Ur Leukocyte Esterase (Negative) COVID-19 Eval Order SARS-CoV-2, RNA, NAAT (NEGATIVE) Blood Type O Positive Antibody Screen NEGATIVE 10/01/20 10/01/20 10/01/20 Range/Units 14:26 14:26 14:26 WBC (4.8-10.8) K/uL RBC (4.2-5.4) M/uL Hgb (12.0-16.0) g/dL Hct (37-47) % MCV (80-100) fL MCH (25-34) pg MCHC (32-36) g/dL RDW Std Deviation (36.4-46.3) fL RDW Coeff of Erika (11.5-14.5) % Plt Count (130-400) K/uL MPV (7.4-10.4) fL Immature Gran % (Auto) % Neut % (Auto) % Lymph % (Auto) % [place] % (Auto) % Eos % (Auto) % Baso % (Auto) % Neut # (Auto) (1.4-6.5) K/uL Lymph # (Auto) (1.2-3.4) K/uL [place] # (Auto) (0.11-0.59) K/uL Eos # (Auto) (0-0.5) K/uL Baso # (Auto) (0-0.2) K/uL Immature Gran # (Auto) (0.00-0.02) K/uL PT 10.2 (9.0-12.0) Seconds INR 1.0 (0.9-1.1) APTT 25.3 (21.0-31.0) Seconds PTT Ratio 1.0 Sodium (136-145) mmol/L Potassium (3.5-5.1) mmol/L Chloride (98-107) mmol/L Carbon Dioxide (21-32) mmol/L Anion Gap (3-11) BUN (7-18) mg/dl Creatinine (0.6-1.2) mg/dl Est Cr Clr Drug Dosing ml/min Est GFR ( Amer) ml/min Est GFR (Non-Af Amer) ml/min BUN/Creatinine Ratio (10-20) Glucose (70-99) mg/dl Estimat Average Glucose 120 mg/dl Hemoglobin A1c 5.8 H (4.5-5.6) % Calcium (8.5-10.1) mg/dl Albumin (3.4-5.0) gm/dl Urine Color Yellow Urine Appearance Clear (Clear) Urine pH 5.0 (4.5-7.5) Ur Specific [place] 1.014 (1.000-1.030) Urine Protein Negative (Negative) Urine Glucose (UA) Negative (Negative) Urine Ketones Negative (Negative) Urine Blood Negative (Negative) Urine Nitrite Negative (Negative) Urine Bilirubin Negative (Negative) Urine Urobilinogen Negative (Negative) Ur Leukocyte Esterase Negative (Negative) COVID-19 Eval Order SARS-CoV-2, RNA, NAAT (NEGATIVE) Blood Type Antibody Screen 10/30/20 10/30/20 10/31/20 Range/Units 05:35 05:35 05:54 WBC 10.65 (4.8-10.8) K/uL RBC 3.84 L (4.2-5.4) M/uL Hgb 10.9 L (12.0-16.0) g/dL Hct 32.0 L (37-47) % MCV 83.3 (80-100) fL MCH 28.4 (25-34) pg MCHC 34.1 (32-36) g/dL RDW Std Deviation 40.7 (36.4-46.3) fL RDW Coeff of Erika 13.4 (11.5-14.5) % Plt Count 174 (130-400) K/uL MPV 9.2 (7.4-10.4) fL Immature Gran % (Auto) % Neut % (Auto) % Lymph % (Auto) % [place] % (Auto) % Eos % (Auto) % Baso % (Auto) % Neut # (Auto) (1.4-6.5) K/uL Lymph # (Auto) (1.2-3.4) K/uL [place] # (Auto) (0.11-0.59) K/uL Eos # (Auto) (0-0.5) K/uL Baso # (Auto) (0-0.2) K/uL Immature Gran # (Auto) (0.00-0.02) K/uL PT (9.0-12.0) Seconds INR (0.9-1.1) APTT (21.0-31.0) Seconds PTT Ratio Sodium (136-145) mmol/L Potassium (3.5-5.1) mmol/L Chloride (98-107) mmol/L Carbon Dioxide (21-32) mmol/L Anion Gap (3-11) BUN (7-18) mg/dl Creatinine (0.6-1.2) mg/dl Est Cr Clr Drug Dosing ml/min Est GFR ( Amer) ml/min Est GFR (Non-Af Amer) ml/min BUN/Creatinine Ratio (10-20) Glucose (70-99) mg/dl Estimat Average Glucose mg/dl Hemoglobin A1c (4.5-5.6) % Calcium (8.5-10.1) mg/dl Albumin (3.4-5.0) gm/dl Urine Color Urine Appearance (Clear) Urine pH (4.5-7.5) Ur Specific [place] (1.000-1.030) Urine Protein (Negative) Urine Glucose (UA) (Negative) Urine Ketones (Negative) Urine Blood (Negative) Urine Nitrite (Negative) Urine Bilirubin (Negative) Urine Urobilinogen (Negative) Ur Leukocyte Esterase (Negative) COVID-19 Eval Order Covid19 IDNow [facility] SARS-CoV-2, RNA, NAAT NEGATIVE (NEGATIVE) Blood Type Antibody Screen 10/31/20 Range/Units 05:54 WBC (4.8-10.8) K/uL RBC (4.2-5.4) M/uL Hgb (12.0-16.0) g/dL Hct (37-47) % MCV (80-100) fL MCH (25-34) pg MCHC (32-36) g/dL RDW Std Deviation (36.4-46.3) fL RDW Coeff of Erika (11.5-14.5) % Plt Count (130-400) K/uL MPV (7.4-10.4) fL Immature Gran % (Auto) % Neut % (Auto) % Lymph % (Auto) % [place] % (Auto) % Eos % (Auto) % Baso % (Auto) % Neut # (Auto) (1.4-6.5) K/uL Lymph # (Auto) (1.2-3.4) K/uL [place] # (Auto) (0.11-0.59) K/uL Eos # (Auto) (0-0.5) K/uL Baso # (Auto) (0-0.2) K/uL Immature Gran # (Auto) (0.00-0.02) K/uL PT (9.0-12.0) Seconds INR (0.9-1.1) APTT (21.0-31.0) Seconds PTT Ratio Sodium 142 (136-145) mmol/L Potassium 3.9 (3.5-5.1) mmol/L Chloride 113 H (98-107) mmol/L Carbon Dioxide 24 (21-32) mmol/L Anion Gap 5.0 (3-11) BUN 14 (7-18) mg/dl Creatinine 0.60 (0.6-1.2) mg/dl Est Cr Clr Drug Dosing 79.3 ml/min Est GFR ( Amer) 108.5 ml/min Est GFR (Non-Af Amer) 93.7 ml/min BUN/Creatinine Ratio 23.8 H (10-20) Glucose 103 H (70-99) mg/dl Estimat Average Glucose mg/dl Hemoglobin A1c (4.5-5.6) % Calcium 8.9 (8.5-10.1) mg/dl Albumin (3.4-5.0) gm/dl Urine Color Urine Appearance (Clear) Urine pH (4.5-7.5) Ur Specific [place] (1.000-1.030) Urine Protein (Negative) Urine Glucose (UA) (Negative) Urine Ketones (Negative) Urine Blood (Negative) Urine Nitrite (Negative) Urine Bilirubin (Negative) Urine Urobilinogen (Negative) Ur Leukocyte Esterase (Negative) COVID-19 Eval Order SARS-CoV-2, RNA, NAAT (NEGATIVE) Blood Type Antibody Screen
[2020-10-31] MEDS: DOCUSATE SODIUM 100 MG CAP PO SCH (08:28)
[2020-10-31] MEDS: ASPIRIN 81 MG ECTAB PO SCH (08:29)
[2020-10-31] MEDS ORDERED: MULTIVITAMIN TAB PO SCH ×2 (09:00)
[2020-10-31] MEDS ORDERED: lisinopril 10 MG TAB PO SCH (09:00)
[2020-10-31] MEDS ORDERED: PRAVASTATIN SOD 20 MG TAB PO SCH (09:00)
[2020-10-31] MEDS ORDERED: LORATADINE 10 MG TAB PO SCH (09:00)
[2020-10-31] MEDS ORDERED: ASCORBIC ACID 500 MG TAB PO SCH (09:00)
--- NOTE | 2020-10-31 10:02 | Hospitalist Progress Note ---
Date of Service October 31, 2020 Assessment & Plan (1) Primary osteoarthritis of right knee: This is a 70-year-old female who has significant past medical history of HTN, HLD, Raynaud's, history of COVID-19, prediabetes, suspected TRAVIS currently undergoing evaluation who presents for elective R TKA by Dr. Palma. POD #1 s/p R TKA tolerated procedure well Currently ambulating with physical therapist without any difficulty, using a walker Pain/wound management per Ortho Activity and therapy as prescribed by Ortho Encourage incentive spirometry Monitor H&H, preop hemoglobin 12.8 Acute blood loss anemia, post-op, dilutional Current Hemoglobin 10.9 No need for blood transfusion at this time, anemia expected Patient is completely asymptomatic at this time (2) Hypertension: Continue lisinopril, w/ hold parameters (3) Hyperlipidemia: Continue pravastatin (4) Prediabetes: Preop labs reveal A1c 5.8 Encourage lifestyle and diet modification (5) DVT prophylaxis: ASA twice daily per Ortho Dispo: Per attending Full code PCP: Jhon Thank you for this consultation. We will follow the patient with you during their hospital stay. You can reach a member of the [facility] Hospitalist Team 13/12 via hospitalist role on tiger text. Admission and Anticipated Discharge Date Admission Date: October 30, 2020 Subjective Patient seen in follow-up for postop, management POD#1 from right TKA. She is doing well this morning. Currently she is walking with a walker, and PT therapist Pain well controlled. No complaints. Denies chest pain, sob, dizziness, n/v/d, fever or chills. Review of Systems Review of Systems: All systems reviewed & are unremarkable except as noted in HPI & below Constitutional: no fever and no chills Respiratory: no cough and no dyspnea Cardiovascular: no chest pain and no palpitations Gastrointestinal: no abdominal pain, no nausea and no vomiting Physical Exam Physical Exam: Constitutional: WD/WN, vitals as above, NAD Head: Normocephalic, Atraumatic Eyes: PERRL, conjunctivae normal, anicteric sclerae ENMT: external ear and nose normal, oropharynx normal Neck: trachea midline, no thyromegaly normal visual inspection Respiratory: normal respiratory effort, lungs clear to auscultation, no wheeze, rales, rhonchi. Normal insp/exp effort, no accessory muscle use Cardiovascular: RRR, no murmur, no edema Vessels: no JVD or carotid bruit Chest: normal inspection of chest Abdomen: normal bowel sounds, soft, nontender Musculoskeletal: no cyanosis or clubbing, R knee dressing CDI, hemovac in place, extremities motor strength 5/5 Skin: no rashes, warm and dry normal turgor Neurologic: PERRL, EOMI, no face palsy, no dysarthria CN's II-XI intact bilaterally and moves all extremities Psychiatric: A+Ox3, euthymic affect Results & Data Results & Data ([facility]) Vital Signs (Past 12 Hours) Vital Signs Temp Pulse Pulse Resp BP BP Pulse Ox 10/31/20 07:37 36.6 C 80 18 132/80 99 10/31/20 03:01 36.5 C 71 16 152/84 H 98 10/30/20 23:04 36.4 C L 71 16 128/74 97 Laboratory Results 10/31/20 10/31/20 Range/Units 05:54 05:54 WBC 10.65 (4.8-10.8) K/uL RBC 3.84 L (4.2-5.4) M/uL Hgb 10.9 L (12.0-16.0) g/dL Hct 32.0 L (37-47) % MCV 83.3 (80-100) fL MCH 28.4 (25-34) pg MCHC 34.1 (32-36) g/dL RDW Std Deviation 40.7 (36.4-46.3) fL RDW Coeff of Erika 13.4 (11.5-14.5) % Plt Count 174 (130-400) K/uL MPV 9.2 (7.4-10.4) fL Sodium 142 (136-145) mmol/L Potassium 3.9 (3.5-5.1) mmol/L Chloride 113 H (98-107) mmol/L Carbon Dioxide 24 (21-32) mmol/L Anion Gap 5.0 (3-11) BUN 14 (7-18) mg/dl Creatinine 0.60 (0.6-1.2) mg/dl Est Cr Clr Drug Dosing 79.3 ml/min Est GFR ( Amer) 108.5 ml/min Est GFR (Non-Af Amer) 93.7 ml/min BUN/Creatinine Ratio 23.8 H (10-20) Glucose 103 H (70-99) mg/dl Calcium 8.9 (8.5-10.1) mg/dl Medications Administered Current Inpatient Medications Acetaminophen (Acetaminophen 500 Mg Tab) 1,000 mg PO Q8 [facility] Stop: 11/29/20 13:59 Last Admin: 10/31/20 06:14 Dose: 1,000 mg Documented by: Ascorbic Acid (Ascorbic Acid 500 Mg Tab) [facility]: 11/30/20 08:59 Last Admin: 10/31/20 08:28 Dose: 500 mg Documented by: Aspirin (Aspirin 81 Mg Ectab) 81 mg PO BID [facility] Stop: 11/29/20 20:59 Last Admin: 10/31/20 08:29 Dose: 81 mg Documented by: Bisacodyl (Bisacodyl 10 Mg Supp) 10 mg [place] DAILY PRN PRN Reason: Constipation Stop: 11/29/20 11:40 Docusate Sodium (Docusate Sodium 100 Mg Cap) 100 mg PO BID [facility] Stop: 11/29/20 20:59 Last Admin: 10/31/20 08:28 Dose: 100 mg Documented by: Hydromorphone HCl (Hydromorphone Inj 0.5 Mg/0.5 Ml Syr) 0.5 mg IV Q4H PRN PRN Reason: Pain or Pre PT Stop: 11/13/20 11:40 Lisinopril (Lisinopril 10 Mg Tab) 10 mg PO [facility] Stop: 11/30/20 08:59 Last Admin: 10/31/20 08:28 Dose: 10 mg Documented by: Loratadine (Loratadine 10 Mg Tab) 10 mg PO [facility] Stop: 11/30/20 08:59 Last Admin: 10/31/20 08:29 Dose: 10 mg Documented by: Magnesium Hydroxide (Magnesium Hydroxide Susp 30 Ml Udc) 30 ml PO Q6H PRN PRN Reason: Constipation Stop: 11/29/20 11:40 Metoclopramide HCl (Metoclopramide Hcl Inj 5 Mg/Ml 2 Ml Vial) 10 mg IV Q6H PRN PRN Reason: Nausea And Vomiting Stop: 11/29/20 11:40 Multivitamins (Multivitamin Tab) 1 tab PO [facility] Stop: 11/30/20 08:59 Last Admin: 10/31/20 08:28 Dose: 1 tab Documented by: Naloxone HCl (Naloxone Hcl 0.4 Mg/1 Ml Vial/Carp) 0.1 mg IV Q5M PRN PRN Reason: Oversedation/Resp Depression Stop: 11/29/20 11:40 Ondansetron HCl (Ondansetron Inj 2 Mg/Ml 2 Ml Vial) 4 mg IV Q6H PRN PRN Reason: Nausea And Vomiting Stop: 11/29/20 11:40 Oxycodone HCl (Oxycodone Hcl Ir 5 Mg Tab (Immediate Release)) 5 - 10 mg PO Q4H PRN PRN Reason: Pain or Pre PT Stop: 11/13/20 11:40 Pravastatin Sodium (Pravastatin Sod 20 Mg Tab) 20 mg PO QAM [facility] Stop: 11/30/20 08:59 Last Admin: 10/31/20 08:28 Dose: 20 mg Documented by: Sennosides (Senna 8.6 Mg Tab) 17.2 mg PO HS [facility] Stop: 11/29/20 20:59 Last Admin: 10/30/20 20:46 Dose: Not Given Documented by:
--- NOTE | 2020-10-31 21:27 | Discharge Summary ---
Date of Service October 31, 2020 Admission HPI Per Admitting Provider 70 year old female with PMHx significant for HTN, high cholesterol, Raynaud's who presents with ongoing right knee pain and severe osteoarthritis right knee with bone loss. She has failed conservative measures. Pain interfering with her daily activities and ability to carry out leisure activities. She would like to proceed with surgical intervention. Patient denies headaches, sweats, fevers, chills, double vision, blurred vision, cough, sore throat, dysphagia, chest pain, sob, wheezing, n/v/d/c, numbness, tingling, fatigue, urinary symptoms, mood disorders. ROS positive for right knee pain and stiffness. Admission Exam Per Admitting Provider Constitutional: well developed and well nourished; no acute distress Eyes: PERRL, conjunctivae normal, anicteric sclerae ENMT: external ear and nose normal, oropharynx normal Neck: trachea midline, no thyromegaly Respiratory: normal respiratory effort, lungs clear to auscultation Cardiovascular: RRR, no murmur, no edema Musculoskeletal: Right knee: Valgus alignment. Moderate effusion. Lateral joint line tenderness. Positive valgus stress, positive Kathy's. ROM 5-90 degrees. Skin: no rashes, warm and dry Neurologic: patellar DTR's 2+ bilat, sensation intact Psychiatric: A+Ox3, euthymic affect Principal Diagnosis Right knee osteoarthritis Discharge Exam Constitutional well developed and well nourished; no acute distress Eyes PERRL, conjunctivae normal, anicteric sclerae ENMT external ear and nose normal, oropharynx normal Neck trachea midline, no thyromegaly Respiratory normal respiratory effort, lungs clear to auscultation Cardiovascular RRR, no murmur, no edema Skin no rashes, warm and dry Neurologic patellar DTR's 2+ bilat, sensation intact Psychiatric A+Ox3, euthymic affect Discharge Data Allergies Allergy/AdvReac Type Severity Reaction Status Date / Time Sulfa (Sulfonamide Allergy Severe Hives Verified 09/29/20 07:33 Antibiotics) latex Allergy Intermediate Blister Verified 09/29/20 07:33 Consultations 10/27/20 12:35 Consult Hospitalist Routine Procedures Performed Operation Date: 10/30/20 07:00 Actual Procedures p Right Total Knee Arthroplasty(Right) - Martínez Palma MD Ordered Studies 10/30/20 05:00 US - OR guided needle placemen Routine Hospital Course (1) Primary osteoarthritis of right knee: Patient presented for same day admission following right total knee arthroplasty on 10/30/20. She tolerated procedure well. The Patient had an uneventful hospital course. Post-operatively, her activity was progressed and well tolerated. They participated in PT with ambulation distance of 100 feet. ROM of operative knee reached 60 degrees. Labs remained stable- lowest hemoglobin recorded: 10.[address] Virgilio Dinh of medical service was consulted for medical management during admission. Pain controlled on oral medications. Please refer to daily progress notes and PT notes for complete details. After exam on 10/31/20, patient was felt to be stable for discharge home with home heatlh PT. Patient will f/u in the office in about 2 weeks for further evaluation including x-rays and incision check, sooner if having any issues or concerns. POD#1 Right TKA -Pain management -PT/OT -DVT prophylaxis-SCDs, TEDs, ASA 81mg BID -AM labs-hemoglobin at 10.9 from 12.8 acute blood loss anemia due to surgical loss vs dilutional effect -D/C planning-home with HHPT, plan on discharge today if does well with PT. Lab Results 10/01/20 10/01/20 10/01/20 Range/Units 14:26 14:26 14:26 WBC 4.43 L (4.8-10.8) K/uL RBC 4.54 (4.2-5.4) M/uL Hgb 12.8 (12.0-16.0) g/dL Hct 38.7 (37-47) % MCV 85.2 (80-100) fL MCH 28.2 (25-34) pg MCHC 33.1 (32-36) g/dL RDW Std Deviation 40.8 (36.4-46.3) fL RDW Coeff of Erika 13.2 (11.5-14.5) % Plt Count 209 (130-400) K/uL MPV 9.9 (7.4-10.4) fL Immature Gran % (Auto) 0.0 % Neut % (Auto) 66.8 % Lymph % (Auto) 23.7 % Upson % (Auto) 6.5 % Eos % (Auto) 2.5 % Baso % (Auto) 0.5 % Neut # (Auto) 2.96 (1.4-6.5) K/uL Lymph # (Auto) 1.05 L (1.2-3.4) K/uL Upson # (Auto) 0.29 (0.11-0.59) K/uL Eos # (Auto) 0.11 (0-0.5) K/uL Baso # (Auto) 0.02 (0-0.2) K/uL Immature Gran # (Auto) 0.00 (0.00-0.02) K/uL PT (9.0-12.0) Seconds INR (0.9-1.1) APTT (21.0-31.0) Seconds PTT Ratio Sodium 143 (136-145) mmol/L Potassium 4.3 (3.5-5.1) mmol/L Chloride 110 H (98-107) mmol/L Carbon Dioxide 29 (21-32) mmol/L Anion Gap 4.0 (3-11) BUN 14 (7-18) mg/dl Creatinine 0.77 (0.6-1.2) mg/dl Est Cr Clr Drug Dosing 61.9 ml/min Est GFR ( Amer) 92.0 ml/min Est GFR (Non-Af Amer) 79.3 ml/min BUN/Creatinine Ratio 18.7 (10-20) Glucose 149 H (70-99) mg/dl Estimat Average Glucose mg/dl Hemoglobin A1c (4.5-5.6) % Calcium 9.7 (8.5-10.1) mg/dl Albumin 3.8 (3.4-5.0) gm/dl Urine Color Urine Appearance (Clear) Urine pH (4.5-7.5) Ur Specific Freeman (1.000-1.030) Urine Protein (Negative) Urine Glucose (UA) (Negative) Urine Ketones (Negative) Urine Blood (Negative) Urine Nitrite (Negative) Urine Bilirubin (Negative) Urine Urobilinogen (Negative) Ur Leukocyte Esterase (Negative) COVID-19 Eval Order SARS-CoV-2, RNA, NAAT (NEGATIVE) Blood Type O Positive Antibody Screen NEGATIVE 10/01/20 10/01/20 10/01/20 Range/Units 14:26 14:26 14:26 WBC (4.8-10.8) K/uL RBC (4.2-5.4) M/uL Hgb (12.0-16.0) g/dL Hct (37-47) % MCV (80-100) fL MCH (25-34) pg MCHC (32-36) g/dL RDW Std Deviation (36.4-46.3) fL RDW Coeff of Erika (11.5-14.5) % Plt Count (130-400) K/uL MPV (7.4-10.4) fL Immature Gran % (Auto) % Neut % (Auto) % Lymph % (Auto) % Upson % (Auto) % Eos % (Auto) % Baso % (Auto) % Neut # (Auto) (1.4-6.5) K/uL Lymph # (Auto) (1.2-3.4) K/uL Upson # (Auto) (0.11-0.59) K/uL Eos # (Auto) (0-0.5) K/uL Baso # (Auto) (0-0.2) K/uL Immature Gran # (Auto) (0.00-0.02) K/uL PT 10.2 (9.0-12.0) Seconds INR 1.0 (0.9-1.1) APTT 25.3 (21.0-31.0) Seconds PTT Ratio 1.0 Sodium (136-145) mmol/L Potassium (3.5-5.1) mmol/L Chloride (98-107) mmol/L Carbon Dioxide (21-32) mmol/L Anion Gap (3-11) BUN (7-18) mg/dl Creatinine (0.6-1.2) mg/dl Est Cr Clr Drug Dosing ml/min Est GFR ( Amer) ml/min Est GFR (Non-Af Amer) ml/min BUN/Creatinine Ratio (10-20) Glucose (70-99) mg/dl Estimat Average Glucose 120 mg/dl Hemoglobin A1c 5.8 H (4.5-5.6) % Calcium (8.5-10.1) mg/dl Albumin (3.4-5.0) gm/dl Urine Color Yellow Urine Appearance Clear (Clear) Urine pH 5.0 (4.5-7.5) Ur Specific Freeman 1.014 (1.000-1.030) Urine Protein Negative (Negative) Urine Glucose (UA) Negative (Negative) Urine Ketones Negative (Negative) Urine Blood Negative (Negative) Urine Nitrite Negative (Negative) Urine Bilirubin Negative (Negative) Urine Urobilinogen Negative (Negative) Ur Leukocyte Esterase Negative (Negative) COVID-19 Eval Order SARS-CoV-2, RNA, NAAT (NEGATIVE) Blood Type Antibody Screen 10/30/20 10/30/20 10/31/20 Range/Units 05:35 05:35 05:54 WBC 10.65 (4.8-10.8) K/uL RBC 3.84 L (4.2-5.4) M/uL Hgb 10.9 L (12.0-16.0) g/dL Hct 32.0 L (37-47) % MCV 83.3 (80-100) fL MCH 28.4 (25-34) pg MCHC 34.1 (32-36) g/dL RDW Std Deviation 40.7 (36.4-46.3) fL RDW Coeff of Erika 13.4 (11.5-14.5) % Plt Count 174 (130-400) K/uL MPV 9.2 (7.4-10.4) fL Immature Gran % (Auto) % Neut % (Auto) % Lymph % (Auto) % Upson % (Auto) % Eos % (Auto) % Baso % (Auto) % Neut # (Auto) (1.4-6.5) K/uL Lymph # (Auto) (1.2-3.4) K/uL Upson # (Auto) (0.11-0.59) K/uL Eos # (Auto) (0-0.5) K/uL Baso # (Auto) (0-0.2) K/uL Immature Gran # (Auto) (0.00-0.02) K/uL PT (9.0-12.0) Seconds INR (0.9-1.1) APTT (21.0-31.0) Seconds PTT Ratio Sodium (136-145) mmol/L Potassium (3.5-5.1) mmol/L Chloride (98-107) mmol/L Carbon Dioxide (21-32) mmol/L Anion Gap (3-11) BUN (7-18) mg/dl Creatinine (0.6-1.2) mg/dl Est Cr Clr Drug Dosing ml/min Est GFR ( Amer) ml/min Est GFR (Non-Af Amer) ml/min BUN/Creatinine Ratio (10-20) Glucose (70-99) mg/dl Estimat Average Glucose mg/dl Hemoglobin A1c (4.5-5.6) % Calcium (8.5-10.1) mg/dl Albumin (3.4-5.0) gm/dl Urine Color Urine Appearance (Clear) Urine pH (4.5-7.5) Ur Specific Freeman (1.000-1.030) Urine Protein (Negative) Urine Glucose (UA) (Negative) Urine Ketones (Negative) Urine Blood (Negative) Urine Nitrite (Negative) Urine Bilirubin (Negative) Urine Urobilinogen (Negative) Ur Leukocyte Esterase (Negative) COVID-19 Eval Order Covid19 [facility] SARS-CoV-2, RNA, NAAT NEGATIVE (NEGATIVE) Blood Type Antibody Screen 10/31/20 Range/Units 05:54 WBC (4.8-10.8) K/uL RBC (4.2-5.4) M/uL Hgb (12.0-16.0) g/dL Hct (37-47) % MCV (80-100) fL MCH (25-34) pg MCHC (32-36) g/dL RDW Std Deviation (36.4-46.3) fL RDW Coeff of Erika (11.5-14.5) % Plt Count (130-400) K/uL MPV (7.4-10.4) fL Immature Gran % (Auto) % Neut % (Auto) % Lymph % (Auto) % Upson % (Auto) % Eos % (Auto) % Baso % (Auto) % Neut # (Auto) (1.4-6.5) K/uL Lymph # (Auto) (1.2-3.4) K/uL Upson # (Auto) (0.11-0.59) K/uL Eos # (Auto) (0-0.5) K/uL Baso # (Auto) (0-0.2) K/uL Immature Gran # (Auto) (0.00-0.02) K/uL PT (9.0-12.0) Seconds INR (0.9-1.1) APTT (21.0-31.0) Seconds PTT Ratio Sodium 142 (136-145) mmol/L Potassium 3.9 (3.5-5.1) mmol/L Chloride 113 H (98-107) mmol/L Carbon Dioxide 24 (21-32) mmol/L Anion Gap 5.0 (3-11) BUN 14 (7-18) mg/dl Creatinine 0.60 (0.6-1.2) mg/dl Est Cr Clr Drug Dosing 79.3 ml/min Est GFR ( Amer) 108.5 ml/min Est GFR (Non-Af Amer) 93.7 ml/min BUN/Creatinine Ratio 23.8 H (10-20) Glucose 103 H (70-99) mg/dl Estimat Average Glucose mg/dl Hemoglobin A1c (4.5-5.6) % Calcium 8.9 (8.5-10.1) mg/dl Albumin (3.4-5.0) gm/dl Urine Color Urine Appearance (Clear) Urine pH (4.5-7.5) Ur Specific Freeman (1.000-1.030) Urine Protein (Negative) Urine Glucose (UA) (Negative) Urine Ketones (Negative) Urine Blood (Negative) Urine Nitrite (Negative) Urine Bilirubin (Negative) Urine Urobilinogen (Negative) Ur Leukocyte Esterase (Negative) COVID-19 Eval Order SARS-CoV-2, RNA, NAAT (NEGATIVE) Blood Type Antibody Screen Total Time Total Time Spent Total Time Spent (In Minutes): 20 Discharge Plan Discharge Items Patient Disposition: Home - Home Health Services Reason For Visit: Unilateral Primary Osteoarthritis, Right Knee Discharge Diagnosis: Right knee osteoarthritis Activity: Per Instructions section Non-emergency contact: Surgeon Call non-emergency contact if: you have any medication questions, your pain is not controlled, your pain is worsening, your pain is concerning for you, you have a fever, your temperature is above 101, your wound has increased redness, your wound has increased drainage and your wound pain has increased Follow-up/Referrals: Jimmy Ferreira MD [Primary Care Provider] - Diet: Regular Addtl Attending Provider Instructions: ACTIVITY RECOMMENDATIONS: SELF CARE INSTRUCTIONS AFTER TOTAL KNEE REPLACEMENT A. You may need to continue a physical therapy program after discharge from the hospital. There are several options available to you. Your doctor will assist you in selecting the best one for you. 1. An out-patient facility 2 to 3 times a week for therapy or home therapy. 2. Continue working on all exercises taught to you in the hospital. Your goals should be to increase bending of your knee to 90 degrees and beyond and to fully straighten your knee. B. You may progress at your own pace from walking with a walker or crutches to a cane; then to no assistive devices. C. Make walking a part of your daily routine. Be up as much as comfortable with rest periods throughout the day. Rest with leg elevation is very important. Use the ice wrap frequently for the first 3-4 weeks. D. There are no restrictions on activities. You may ride in a car, shop, participate in copywriting intern and all social activities. E. Wear the long elastic stockings (KARLY hose) 20 hours a day for 2 weeks after surgery. They can be removed several times a day for laundering and for a bath. F. You may shower, no tub baths until cleared by your doctor. SPECIAL CARE INSTRUCTIONS: VERY IMPORTANT TO READ AND REVIEW A. There are a few signs you need to watch for after you are home. Call [facility] if you notice any of the followin. Increased severe knee pain. Some pain is expected especially when you exercise. 2. Increased swelling in your leg or knee; pain or swelling of the calf muscle in either lower leg. 3. Any fluid drainage from the incision. 4. Shortness of breath or chest pain. B. Please call [facility] at if you have any concerns or questions about your operation or recovery. The doctor or his nurse will return your call promptly. C. You must take antibiotics before dental work, bladder, bowel or other surgery. Your doctor will provide you with a permanent care to carry describing this precaution. IMPORTANT: * REMEMBER TO TAKE ASPIRIN, 81 MG, TWICE DAILY FOR 4 WEEKS UNLESS OTHERWISE DIRECTED. THIS IS YOUR BLOOD THINNER. * HIGH RISK PATIENTS MAY BE PRESCRIBED A STRONGER BLOOD THINNER. THIS WILL BE PROVIDED AT DISCHARGE. * CALL IF INCREASED PAIN, REDNESS, DRAINAGE OR FEVER GREATER THAT 101. * WEAR KARLY HOSE 20 HOURS PER DAY FOR 2 WEEKS. This is a large suction dressing covering your incision. This will help pull any excess drainage from the wound and allow your incision to heal properly. You may shower with this if you can keep the unit outside of the shower. If any bleeding or leakage is noted please call your doctor's office. This will remain on your incision for 7 days and then should be removed. This can be done yourself or by the home nursing staff if applicable. The entire unit is disposable once removed. Once removed, keep incision clean and dry. If redness or drainage is noted, please call your surgeon. IF INCISION IS LEAKING THROUGH DRESSING, CALL THE OFFICE . FOLLOW UP VISIT: If appointment is not already scheduled: Please call [facility] to make a follow-up appointment for 2 weeks after your surgery at . Pending Studies at Discharge: No Stand-Alone Forms: [facility], Opioid Pain Management, Smoking Cessation Medications and DC Order Prescriptions: New aspirin 81 mg Tablet,Delayed Release (Dr/Ec) 81 mg PO BID Qty: 60 RF: 0 acetaminophen 500 mg Tablet 1,000 mg PO Q8 Qty: 60 RF: 0 oxycodone 5 mg Tablet 5 - 10 mg PO .Q4h-6h MDD 6 PRN (Reason: pain) Qty: 30 RF: 0 Continued lisinopril 10 mg tablet 10 mg PO QAM RF: 0 pravastatin 20 mg tablet 20 mg PO QAM RF: 0 multivitamin Tablet 1 tab PO QAM RF: 0 ascorbic acid (vitamin C) [Vitamin C] 500 mg Tablet 500 mg PO QAM RF: 0 loratadine 10 mg Capsule 10 mg PO QAM RF: 0 Discontinued aspirin 81 mg Tablet,Delayed Release (Dr/Ec) 81 mg PO QAM RF: 0 Discharge Orders: Discharge Order (Routine); Ordered 10/31/20 Ordered By: Anmol Posadas Admission Data Admit Date/Time: 10/30/20 09:53 Attending Provider: Martínez Palma Admit Provider: Martínez Palma Primary Care Provider: Jimmy Ferreira Other Providers: [facility],Home Healthcare ; Dawson Dinh Other Interventions: Discharge Summary Assessment (RN) Last Done: 10/31/20 14:11
== END 2020-10-31 16:45 | disposition home health service (06) ==
LOC: ASU 05:20 → 3E 05:20
DX: I10 Essential (primary) hypertension; Z79.82 Long term (current) use of aspirin; Z91.040 Latex allergy status; M17.11 Unilateral primary osteoarthritis, right knee; Z88.2 Allergy status to sulfonamides; Z79.899 Other long term (current) drug therapy; E78.5 Hyperlipidemia, unspecified; R73.03 Prediabetes; Z20.822 Contact with and (suspected) exposure to COVID-19

== ENCOUNTER 2025-01-18 20:37 | Inpatient (IN) ==
[2025-01-18 21:13] LABS: Hematocrit (blood only) 35.7 % (37.0-47.0); Hemoglobin 12.4 g/dl (12.0-16.0); Immature Granulocytes # (auto) 0.06 K/uL (0.01-0.20); Immature Granulocytes % (auto) 1.2 %; Mean Corpuscular Hemoglobin 29.6 pg (25.0-34.0); Mean Corpuscular Volume 85.2 fL (80.0-100.0); Platelet Count 182 K/uL (130-400); RDW Standard Deviation 39.1 fL (36.4-46.3); Red Blood Count 4.19 M/uL (4.20-5.40); White Blood Count 5.06 K/ul (4.8-10.8)
[2025-01-18] MEDS: ONDANSETRON INJ 2 MG/ML 2 ML VIAL IV STA (21:18)
[2025-01-18] MEDS: MoRPHine SULFATE 4 MG/ML 1 ML CARP\\VIAL IV STA (21:18)
--- NOTE | 2025-01-18 21:19 | Emergency Department Note ---
Impression & Plan Accidental injury by fall involving riccardo maciel, Fracture of left eighth rib, Fracture of left sixth rib, Fracture of clavicle, Trauma ED Provider Note HISTORY OF PRESENT ILLNESS: Patient is a 75-year-old female presenting as an injury alert. Patient reports she was on a seesaw when she was at the top and on her way down back to the ground when she fell off the left side of the seesaw and landed on the ground. Reports she struck the left side of her head. She is also complaining of left- sided rib pain, left lower back pain and pain in her neck. Patient reports it hurts when she tries to take a deep breath. She is not on any anticoagulation or antiplatelet therapies. She denies loss of consciousness. Denies any numbness or tingling or weakness in her extremities. She denies any anterior chest pain. Denies any abdominal pain or vomiting. Cervical collar applied on arrival to the emergency department. ROS: as above PHYSICAL EXAM: Primary Survey Airway: Intact Breathing: Normal, breath sounds equal bilaterally Circulation: Skin warm, distal pulses 2+, capillary refill less than 2 seconds Disability Pupils: Equal and reactive to light, 3 mm, brisk GCS: 15, E = 4, V=5, M= 6 Motor Function: Moves all extremities. Sensory: No deficits Secondary Survey GEN: Well developed and well-nourished HENT: Head: No external signs of trauma. Mouth/Throat: Midface stable. No3 malocclusion. Eyes: EOMI. Pupils are 3 mm, round and reactive bilaterally. Neck: C-collar placed on evaluation. No midline C-spine tenderness. No step-offs. Cardiovascular: Tachycardic with regular rhythm. Pulses present in all 4 extremities. Pulmonary/Chest: Left posterior lateral ribs are tender to palpation. No overlying ecchymosis or evidence of flail chest. Breath sounds equal bilaterally. Abdomen: Left upper quadrant tenderness to palpation. No ecchymosis. Musculoskeletal: Pelvis: No instability. Back: No midline tenderness. No step-offs or deformities. Extremities: No gross deformities. No TTP. Skin: No laceration. No abrasion. Neuro: No focal neurological deficits. GCS as above. Psych: Normal mood and affect. MDM: - Vitals signs showed tachycardia and hypertension. Cervical collar was applied on arrival to the emergency department. Patient presented on a backboard. She was log-rolled off of the backboard in the emergency department. - History obtained via patient and EMS. History as above. - Chronic conditions affecting care: HTN; HLD - Differential diagnoses include, but are not limited to: Rib fracture; pneumothorax; splenic laceration; spinal fracture; intracranial hemorrhage - Order placed for continuous cardiac monitoring. At this time, monitor showed rate of 100 bpm with normal sinus rhythm, per my interpretation. - External medical records reviewed. - EKG image interpreted by myself showed normal sinus rhythm. Rate 102 bpm. QT 362. No acute ischemic changes. - Laboratory workup interpreted by myself showed normal WBC; stable hemoglobin; normal PT/INR; stable electrolytes; normal troponin; elevated CK (225); normal lipase - CXR image reviewed and interpreted by myself negative for pneumothorax, per my interpretation - CT head wo contrast for acute intracranial pathology. - CT cervical spine wo contrast negative for acute injury in the cervical spine. Noted to have a displaced comminuted left clavicle fracture. - CT chest with IV contrast showed an acute fracture involving the posterior lateral aspect of the left eighth rib. Also noted to have fracture of the left sixth rib. Noted to have a displaced comminuted fracture of the medial aspect of the left clavicle. No pulmonary contusion noted. - CT abdomen/pelvis with IV contrast negative for acute pathology. - Patient initially given 4 mg IV morphine and 4 mg IV zofran. However, on reassessment, she is still complaining of pain. Given 0.5 mg IV Dilaudid. She did have an episode of transient hypoxia with the Dilaudid dosing and required 2L NC. - Given an additional 1g IV tylenol. Placed left arm in arm sling. - The patient's cervical collar was removed today. The patient's imaging was reviewed and the CT C-Spine was negative for acute injury. The patient was alert and oriented prior to her exam. On exam, she was non-tender to palpation midline and had full ROM without any neurologic deficits. The patient tolerated this procedure well. Collar removed at 22:45 - Discussion was had with manager case management about patient's case and need for admission - Hospitalist, Dr. Brandon, consulted for admission - Patient admitted to [facility] service for further evaluation and management. ASSESSMENT AND PLAN: Diagnosis: trauma; fracture of clavicle; fracture of left sixth rib; fracture of left eight rib; accidental injury by fall involving riccardo totter Plan: admit Past Med/Surg History Problem List (Updated 01/18/25 @ 23:26 by Alissa Sumner MD) Trauma (Acute) Fracture of clavicle (Acute) Fracture of left sixth rib (Acute) Fracture of left eighth rib (Acute) Accidental injury by fall involving riccardo totter (Acute) History of colonoscopy Encounter for pre-operative examination Elevated glucose Per records Primary osteoarthritis of right knee DVT prophylaxis Urinary symptom or sign Calculus of ureterovesical junction (UVJ) Hydronephrosis, right Primary osteoarthritis of left knee Prediabetes Hyperlipidemia Hypertension controlled, stable per pt Medical History History of COVID-19 May 27, 2020 -- cold symptoms. no problems currently. Hx of deep venous thrombosis left ankle s/p left TKA in 12/2021. treated with blood thinners for 2 months. all resolved. Hyperlipidemia Hypertension controlled, stable per pt Nausea and vomiting after administration of anesthetic agent just with hysterectomy Prediabetes Raynauds syndrome Per records Sleep apnea cpap-compliant Surgical History History of colonoscopy History of hysterectomy History of left knee replacement History of right cataract surgery History of right knee joint replacement 10/30/20: SAB at L3-L4 1 attempt + PNB. No postop issues per anesthesia progress note. History of tooth extraction Hx of removal of cyst from thumb/neck> both benign Family History Mother Myocardial infarction, Onset Age: 60 Cancer Uterine Father Colorectal cancer Other No family history of adverse response to anesthesia Social History Smoking Status: Unknown if ever smoked Second Hand Exposure: No; Do You Dip or Chew Tobacco: No; Hx Alcohol Use: No Hx Substance Use: No Preferred Language: Omani Communication Ability: Effective Header Setup Operator Required: No Beliefs That Will Affect Care: None marital status: Current Living Situation: Spouse and Family Current Living Situation Comment: , 2 adult children Feels Safe at Home: Yes Assistive Devices: CPAP and Glasses Allergies Allergies Allergy/AdvReac Type Severity Reaction Status Date / Time Sulfa (Sulfonamide Allergy Severe Hives Verified 11/17/22 08:41 Antibiotics) latex Allergy Intermediate Blister Verified 11/17/22 08:41 adhesive AdvReac Mild Rash Verified 11/17/22 08:41 Home Meds Home Medications Medication Instructions Recorded Confirmed lisinopril 10 mg tablet 10 mg PO QAM 11/09/18 11/17/22 pravastatin 20 mg tablet 20 mg PO QAM 11/09/18 11/17/22 loratadine 10 mg capsule 10 mg PO QA 09/29/20 11/17/22 multivitamin 1 tab PO QA 09/29/20 11/17/22 amlodipine 2.5 mg tablet 2.5 mg PO QA 11/30/21 11/17/22 Results & Data (ED) Vital Signs Vital Signs - 24 hr 01/18/25 20:42 01/18/25 20:46 01/18/25 21:00 Temperature 37.0 C Temperature Source Oral Pulse Rate 97 H 94 H Pulse Rate [Apical] 101 H Respiratory Rate 22 23 Respiratory Effort / Characteristics Non-Labored Blood Pressure 165/102 H Blood Pressure [Right Arm] Blood Pressure Mean 123 Blood Pressure Mean [Right Arm] Blood Pressure Position Lying Blood Pressure Position [Right Arm] Pulse Oximetry 95 96 Oxygen Delivery Method Room Air Room Air Oxygen Flow Rate Sepsis Recent Fever Within 48 Hours No Sepsis New/Unexplained Change in Mental Status No Sepsis Action Taken by Nursing No Action Required 01/18/25 21:02 01/18/25 22:00 01/18/25 22:32 Temperature 36.8 C Temperature Source Pulse Rate 87 Pulse Rate [Apical] 98 H Respiratory Rate 26 H 24 Respiratory Effort / Characteristics Blood Pressure 152/86 H Blood Pressure [Right Arm] Blood Pressure Mean Blood Pressure Mean [Right Arm] Blood Pressure Position Blood Pressure Position [Right Arm] Pulse Oximetry 92 96 92 Oxygen Delivery Method Room Air Room Air Room Air Oxygen Flow Rate 0 Sepsis Recent Fever Within 48 Hours Sepsis New/Unexplained Change in Mental Status Sepsis Action Taken by Nursing 01/18/25 23:00 Temperature 36.7 C Temperature Source Oral Pulse Rate Pulse Rate [Apical] 90 Respiratory Rate 22 Respiratory Effort / Characteristics Blood Pressure Blood Pressure [Right Arm] 134/87 Blood Pressure Mean Blood Pressure Mean [Right Arm] 102 Blood Pressure Position Blood Pressure Position [Right Arm] Lying Pulse Oximetry 99 Oxygen Delivery Method Room Air Oxygen Flow Rate Sepsis Recent Fever Within 48 Hours Sepsis New/Unexplained Change in Mental Status Sepsis Action Taken by Nursing Laboratory Data 01/18/25 20:47 01/18/25 20:47 Lab Results 01/18/25 01/18/25 Range/Units 20:47 21:05 WBC 5.06 (4.8-10.8) K/ul RBC 4.19 L (4.20-5.40) M/uL Hgb 12.4 (12.0-16.0) g/dl POC Hgb 11.9 L (12.0-16.0) g/dl Hct 35.7 L (37.0-47.0) % POC Hct 35 L (37-47) % MCV 85.2 (80.0-100.0) fL MCH 29.6 (25.0-34.0) pg MCHC 34.7 (32.0-36.0) g/dL RDW Std Deviation 39.1 (36.4-46.3) fL RDW Coeff of Erika 12.7 (11.5-14.5) % Plt Count 182 (130-400) K/uL MPV 9.7 (9.4-12.4) fL Immature Gran % (Auto) 1.2 % Neut % (Auto) 61.2 % Lymph % (Auto) 25.3 % [place] % (Auto) 8.7 % Eos % (Auto) 3.0 % Baso % (Auto) 0.6 % Neut # (Auto) 3.10 (1.40-6.50) K/uL Lymph # (Auto) 1.28 (1.20-3.40) K/uL [place] # (Auto) 0.44 (0.11-0.59) K/uL Eos # (Auto) 0.15 (0.00-0.50) K/uL Baso # (Auto) 0.03 (0.00-0.20) K/uL Immature Gran # (Auto) 0.06 (0.01-0.20) K/uL PT 10.5 (9.0-12.0) Seconds INR 1.0 (0.9-1.1) APTT 22 (21-31) Seconds PTT Ratio 0.8 POC Sodium 141 (135-144) mmol/L Sodium 140 (136-145) mmol/L POC Potassium 3.8 (3.3-5.0) mmol/L Potassium 3.7 (3.5-5.1) mmol/L POC Chloride 106 (101-112) mmol/L Chloride 108 H (98-107) mmol/L Carbon Dioxide 26 (21-32) mmol/L POC Total CO2 24 (24-31) mmol/L Anion Gap 6 (3-11) POC Anion Gap 15.0 L (16-25) mmol/L POC BUN 19 H (7-18) mg/dl BUN 19 (6-23) mg/dl Creatinine 0.93 (0.6-1.2) mg/dl POC Creatinine 1.1 (0.6-1.3) mg/dl Est Cr Clr Drug Dosing 50.3 ml/min eGFR 64.90 BUN/Creatinine Ratio 20.4 H (10-20) Glucose 135 H (70-99(Fasting)) mg/dl POC Glucose (other) 136 H (70-99) mg/dl Calcium 9.7 (8.6-10.3) mg/dl POC Ioniz Calcium Christian 1.23 (1.12-1.32) mmol/l Total Bilirubin 0.3 (0.2-1.0) mg/dl AST 26 (13-39) U/L ALT 21 (7-52) U/L Alkaline Phosphatase 91 (34-104) U/L Total Creatine Kinase 225 H (26-192) U/L Troponin I High Sens 4.3 (0-14) pg/ml Total Protein 6.6 (6.0-8.3) gm/dl Albumin 3.8 (3.4-5.0) gm/dl Globulin 2.8 (2.5-4.0) gm/dl Albumin/Globulin Ratio 1.4 (0.9-2) Lipase 53 (11-82) U/L Administered Medications Discontinued Medications Hydromorphone HCl (Hydromorphone Inj 0.5 Mg/0.5 Ml Syr) 0.5 mg IV NOW STA Stop: 01/18/25 21:59 Last Admin: 01/18/25 22:28 Dose: 0.5 mg Documented By: abl Acetaminophen (Ofirmev) 1,000 mg in 100 mls @ 400 mls/hr IV NOW STA Stop: 01/18/25 23:22 Last Admin: 01/18/25 23:34 Dose: 400 mls/hr Documented By: CHANTE Ioversol (Optiray 320 100ml) 90 ml IV ONCE ONE Stop: 01/18/25 21:24 Last Admin: 01/18/25 21:24 Dose: 90 ml Documented By: CORY Morphine Sulfate (Morphine Sulfate 4 Mg/Ml 1 Ml Carp\Vial) 4 mg IV NOW STA Stop: 01/18/25 21:03 Last Admin: 01/18/25 21:18 Dose: 4 mg Documented By: PARUL Ondansetron HCl (Ondansetron Inj 2 Mg/Ml 2 Ml Vial) 4 mg IV NOW STA Stop: 01/18/25 21:03 Last Admin: 01/18/25 21:18 Dose: 4 mg Documented By: PARUL Imaging Data Radiologist's Impression: Chest X-Ray 01/18/25 21:02 Exam(s): XR CXR 1 VIEW EXAM: XR Chest, 1 View CLINICAL HISTORY: Trauma. TECHNIQUE: Frontal view of the chest. COMPARISON: Chest two-view 12/10/2021 FINDINGS: Lungs: No definite pulmonary contusive injury or focal consolidation. Pleural space: No definite pleural effusion or pneumothorax, accounting for limitations with supine technique. Heart: Unremarkable. No cardiomegaly. Mediastinum: No evidence for mediastinal widening. No tracheal deviation. Bones/joints: No definite acute osseous traumatic injury. Degenerative changes incidentally noted with scoliosis, convex left involving the thoracolumbar spine. IMPRESSION: No radiographic evidence for significant acute traumatic injury involving the chest/thorax. Electronically signed by: Ben Sutton MD 01/18/25 22:13 PM Abdomen/Pelvis CT 01/18/25 21:03 Exam(s): CT ABDOMEN + PELVIS With Contrast IV Amt: 90 ML OPTIRAY 320 EXAM: CT Abdomen and Pelvis With Intravenous Contrast CLINICAL HISTORY: Trauma. TECHNIQUE: Axial computed tomography images of the abdomen and pelvis with intravenous contrast. CTDI is 63.46 mGy and DLP is 4073.44 mGy-cm. Automated exposure control was utilized for the study. A dose lowering technique was utilized adhering to the principles of ALARA. CONTRAST: Patient received 90 ML OPTIRAY 320 of IV contrast COMPARISON: CT abdomen and pelvis with contrast 12/21/2020 FINDINGS: Limitations: There is respiratory artifact, which degrades image quality on multiple image slices. Lung bases: For findings regarding the lung bases, please see the CT report of the chest performed concurrently. ABDOMEN: Liver: The liver is intact without evidence for acute traumatic injury. Hepatic cysts incidentally noted, not significantly altered from the prior examination. Gallbladder and bile ducts: Unremarkable. No calcified stones. No ductal dilation. Pancreas: Unremarkable. No mass. No ductal dilation. Spleen: The spleen is intact without evidence for acute traumatic injury. Adrenals: Unremarkable. No mass. Kidneys and ureters: The kidneys appear intact without evidence for acute traumatic injury. No hydronephrosis. Stomach and bowel: No evidence for acute traumatic bowel injury. No bowel obstruction. The stomach is nearly fully distended with retained oral contents. Hiatal hernia noted. No definite significant asymmetric mucosal thickening. PELVIS: Appendix: Not evaluated. Bladder: Unremarkable. No mass. Reproductive: Unremarkable as visualized. ABDOMEN and PELVIS: Intraperitoneal space: Unremarkable. No free air. No significant fluid collection. Retroperitoneal space: No evidence for retroperitoneal hematoma. Bones/joints: The lumbar spine, pelvic bones and proximal femurs are intact. Multilevel degenerative changes of the lumbar spine with scoliosis of the thoracolumbar region. No acute fracture. No dislocation. Soft tissues: No significant overlying acute traumatic soft tissue abnormality identified. Vasculature: The aorta is normal in caliber without evidence for traumatic injury. No dissection. No evidence for acute periaortic abnormality. Lymph nodes: Unremarkable. No enlarged lymph nodes. IMPRESSION: No significant acute traumatic injury involving the abdomen or pelvis. Electronically signed by: Ben Sutton MD 01/18/25 22:[address] 01/18/25 21:03 Exam(s): CT C SPINE EXAM: CT Cervical Spine Without Intravenous Contrast CLINICAL HISTORY: Trauma. TECHNIQUE: Axial computed tomography images of the cervical spine without intravenous contrast. CTDI is 26.96 mGy and DLP is 42.28 mGy-cm. Automated exposure control was utilized for the study. A dose lowering technique was utilized adhering to the principles of ALARA. COMPARISON: No relevant prior studies available. FINDINGS: Vertebrae: The vertebral bodies are intact without acute osseous traumatic injury. No anterolisthesis or retrolisthesis is identified. The facet joints are well aligned without subluxation or dislocation. The pedicles, transverse processes and spinous processes are intact. Bilateral chronic mild to moderate facet hypertrophic arthropathy incidentally noted. Discs/spinal canal/neural foramina: Incidental chronic appearing mild multilevel disc spondylosis noted with narrowing and marginal hypertrophic changes. No significant acute central canal stenosis identified. Other bones/joints: Displaced comminuted left clavicle fracture noted. Soft tissues: Hyperdense subcutaneous fat stranding surrounding the left clavicle fracture. The unenhanced soft tissues of the cervical region are otherwise unremarkable. IMPRESSION: 1. No acute osseous traumatic injury or significant acute traumatic abnormal alignment involving the cervical spine. 2. Displaced comminuted left clavicle fracture noted. Surrounding subcutaneous fat stranding. Electronically signed by: Ben Sutton MD 01/18/25 22:[address] 01/18/25 21:03 Exam(s): CT CHEST With Contrast IV Amt: 90 ML OPTIRAY 320 EXAM: CT Chest With Intravenous Contrast CLINICAL HISTORY: Trauma. TECHNIQUE: Axial computed tomography images of the chest with intravenous contrast. CTDI is 63.46 mGy and DLP is 4073.44 mGy-cm. Automated exposure control was utilized for the study. A dose lowering technique was utilized adhering to the principles of ALARA. CONTRAST: Patient received 90 ML OPTIRAY 320 of IV contrast COMPARISON: No relevant prior studies available. FINDINGS: Lungs: No definite pulmonary contusive injury or focal consolidation identified. No definite focal airspace consolidation with curvilinear changes noted involving the posterior lower lobes. No significant pulmonary contusive injury. Pleural space: Unremarkable. No significant effusion. No pneumothorax. Heart: The cardiac chambers are normal in size. No pericardial effusion. No significant coronary artery calcifications. Mediastinum: No mediastinal traumatic injury. There is mild fluid distention of the esophagus. No esophageal mucosal thickening identified. Bones/joints: There is an acute fracture involving the posterior and lateral aspect of the left 8th rib. Subtle offset involving the lateral 6th rib is also noted. There is a displaced comminuted fracture involving the medial aspect of the left clavicle. The thoracic spine is intact without acute traumatic injury. Chronic anterior wedging, multilevel degenerative changes and scoliosis noted. No definite displaced right rib fractures. The included shoulders are otherwise unremarkable. Soft tissues: Fat stranding noted about the clavicle fracture. No radiopaque foreign body or subcutaneous emphysema. Vasculature: The thoracic aorta is normal in caliber without evidence for acute periaortic traumatic injury. No dissection or aneurysm. Lymph nodes: Unremarkable. No enlarged lymph nodes. IMPRESSION: 1. There is an acute fracture involving the posterior and lateral aspect of the left 8th rib. Subtle offset involving the lateral 6th rib is also noted. There is a displaced comminuted fracture involving the medial aspect of the left clavicle. Surrounding fat stranding noted about the left clavicle. No radiopaque foreign body. 2. No pulmonary contusive injury with incidental subsegmental atelectatic changes in the posterior lower lobes. No pleural effusion or pneumothorax. Electronically signed by: Ben Sutton MD 01/18/25 22:[address] 01/18/25 21:03 Exam(s): CT HEAD Without Contrast EXAM: CT Head Without Intravenous Contrast CLINICAL HISTORY: trauma. TECHNIQUE: Axial computed tomography images of the head/brain without intravenous contrast. CTDI is 63.96 mGy and DLP is 4073.44 mGy-cm. Automated exposure control was utilized for the study. A dose lowering technique was utilized adhering to the principles of ALARA. COMPARISON: No relevant prior studies available. FINDINGS: Brain: Unremarkable. No hemorrhage. No significant white matter disease. No edema. Ventricles: Unremarkable. No ventriculomegaly. Bones/joints: Unremarkable. No acute fracture. Soft tissues: No significant overlying soft tissue traumatic injury identified. No radiopaque foreign body or subcutaneous emphysema. Sinuses: Unremarkable as visualized. No acute sinusitis. Mastoid air cells: Unremarkable as visualized. No mastoid effusion. IMPRESSION: No acute intracranial process identified. Electronically signed by: Ben Sutton MD 01/18/25 22:14 PM Discharge Plan Visit Data Chief Complaint: Trauma Stated Complaint: FELL OFF [facility], BACK, HEAD, RIB AND NECK ED Provider: Alissa Sumner Discharge Problem: Accidental injury by fall involving riccardo totter, Fracture of left eighth rib, Fracture of left sixth rib, Fracture of clavicle, Trauma Condition: Fair Forms Stand Alone Forms: Studentgems Prescriptions Prescriptions: No Action lisinopril 10 mg tablet 10 mg PO QAM pravastatin 20 mg tablet 20 mg PO QAM amlodipine 2.5 mg Tablet 2.5 mg PO QAM multivitamin Tablet 1 tab PO QAM loratadine 10 mg Capsule 10 mg PO QAM Referrals Referrals: Jimmy Ferreira MD [Primary Care Provider] -
[2025-01-18] MEDS: OPTIRAY 320 100ml IV ONE (21:24)
[2025-01-18 21:31] LABS: Alanine Aminotransferase 21.0 U/L (7-52); Albumin Globulin Ratio 1.4 (0.9-2); Alkaline Phosphatase 91.0 U/L (34-104); Anion Gap 6.0 (3-11); Bilirubin,Total 0.3 mg/dl (0.2-1.0); Blood Urea Nitrogen 19.0 mg/dl (6-23); Calcium 9.7 mg/dl (8.6-10.3); Carbon Dioxide 26.0 mmol/L (21-32); Chloride 108.0 mmol/L (98-107); Creatine Kinase 225.0 U/L (26-192); Creatinine Clr Calc Pharmacy 50.3 ml/min; Globulin 2.8 gm/dl (2.5-4.0); Glucose 135.0 mg/dl (70-99(Fasting)); Lipase 53.0 U/L (11-82); Potassium 3.7 mmol/L (3.5-5.1); Sodium 140.0 mmol/L (136-145); Total Protein 6.6 gm/dl (6.0-8.3)
[2025-01-18 21:39] LABS: INR 1.0 (0.9-1.1); Partial Thromboplastin Time 22 Seconds (21-31); Prothrombin Time 10.5 Seconds (9.0-12.0)
--- NOTE | 2025-01-18 22:14 | XRay Report ---
Exam(s): XR CXR 1 VIEW EXAM: XR Chest, 1 View CLINICAL HISTORY: Trauma. TECHNIQUE: Frontal view of the chest. COMPARISON: Chest two-view 12/10/2021 FINDINGS: Lungs: No definite pulmonary contusive injury or focal consolidation. Pleural space: No definite pleural effusion or pneumothorax, accounting for limitations with supine technique. Heart: Unremarkable. No cardiomegaly. Mediastinum: No evidence for mediastinal widening. No tracheal deviation. Bones/joints: No definite acute osseous traumatic injury. Degenerative changes incidentally noted with scoliosis, convex left involving the thoracolumbar spine. IMPRESSION: No radiographic evidence for significant acute traumatic injury involving the chest/thorax. Electronically signed by: Ben Sutton MD 01/18/25 22:13 PM
--- NOTE | 2025-01-18 22:15 | CT Scan Report ---
Exam(s): CT HEAD Without Contrast EXAM: CT Head Without Intravenous Contrast CLINICAL HISTORY: trauma. TECHNIQUE: Axial computed tomography images of the head/brain without intravenous contrast. CTDI is 63.96 mGy and DLP is 4073.44 mGy-cm. Automated exposure control was utilized for the study. A dose lowering technique was utilized adhering to the principles of ALARA. COMPARISON: No relevant prior studies available. FINDINGS: Brain: Unremarkable. No hemorrhage. No significant white matter disease. No edema. Ventricles: Unremarkable. No ventriculomegaly. Bones/joints: Unremarkable. No acute fracture. Soft tissues: No significant overlying soft tissue traumatic injury identified. No radiopaque foreign body or subcutaneous emphysema. Sinuses: Unremarkable as visualized. No acute sinusitis. Mastoid air cells: Unremarkable as visualized. No mastoid effusion. IMPRESSION: No acute intracranial process identified. Electronically signed by: Ben Sutton MD 01/18/25 22:14 PM
--- NOTE | 2025-01-18 22:21 | CT Scan Report ---
Exam(s): CT CHEST With Contrast IV Amt: 90 ML OPTIRAY 320 EXAM: CT Chest With Intravenous Contrast CLINICAL HISTORY: Trauma. TECHNIQUE: Axial computed tomography images of the chest with intravenous contrast. CTDI is 63.46 mGy and DLP is 4073.44 mGy-cm. Automated exposure control was utilized for the study. A dose lowering technique was utilized adhering to the principles of ALARA. CONTRAST: Patient received 90 ML OPTIRAY 320 of IV contrast COMPARISON: No relevant prior studies available. FINDINGS: Lungs: No definite pulmonary contusive injury or focal consolidation identified. No definite focal airspace consolidation with curvilinear changes noted involving the posterior lower lobes. No significant pulmonary contusive injury. Pleural space: Unremarkable. No significant effusion. No pneumothorax. Heart: The cardiac chambers are normal in size. No pericardial effusion. No significant coronary artery calcifications. Mediastinum: No mediastinal traumatic injury. There is mild fluid distention of the esophagus. No esophageal mucosal thickening identified. Bones/joints: There is an acute fracture involving the posterior and lateral aspect of the left 8th rib. Subtle offset involving the lateral 6th rib is also noted. There is a displaced comminuted fracture involving the medial aspect of the left clavicle. The thoracic spine is intact without acute traumatic injury. Chronic anterior wedging, multilevel degenerative changes and scoliosis noted. No definite displaced right rib fractures. The included shoulders are otherwise unremarkable. Soft tissues: Fat stranding noted about the clavicle fracture. No radiopaque foreign body or subcutaneous emphysema. Vasculature: The thoracic aorta is normal in caliber without evidence for acute periaortic traumatic injury. No dissection or aneurysm. Lymph nodes: Unremarkable. No enlarged lymph nodes. IMPRESSION: 1. There is an acute fracture involving the posterior and lateral aspect of the left 8th rib. Subtle offset involving the lateral 6th rib is also noted. There is a displaced comminuted fracture involving the medial aspect of the left clavicle. Surrounding fat stranding noted about the left clavicle. No radiopaque foreign body. 2. No pulmonary contusive injury with incidental subsegmental atelectatic changes in the posterior lower lobes. No pleural effusion or pneumothorax. Electronically signed by: Ben Sutton MD 01/18/25 22:20 PM
--- NOTE | 2025-01-18 22:23 | CT Scan Report ---
Exam(s): CT ABDOMEN + PELVIS With Contrast IV Amt: 90 ML OPTIRAY 320 EXAM: CT Abdomen and Pelvis With Intravenous Contrast CLINICAL HISTORY: Trauma. TECHNIQUE: Axial computed tomography images of the abdomen and pelvis with intravenous contrast. CTDI is 63.46 mGy and DLP is 4073.44 mGy-cm. Automated exposure control was utilized for the study. A dose lowering technique was utilized adhering to the principles of ALARA. CONTRAST: Patient received 90 ML OPTIRAY 320 of IV contrast COMPARISON: CT abdomen and pelvis with contrast 12/21/2020 FINDINGS: Limitations: There is respiratory artifact, which degrades image quality on multiple image slices. Lung bases: For findings regarding the lung bases, please see the CT report of the chest performed concurrently. ABDOMEN: Liver: The liver is intact without evidence for acute traumatic injury. Hepatic cysts incidentally noted, not significantly altered from the prior examination. Gallbladder and bile ducts: Unremarkable. No calcified stones. No ductal dilation. Pancreas: Unremarkable. No mass. No ductal dilation. Spleen: The spleen is intact without evidence for acute traumatic injury. Adrenals: Unremarkable. No mass. Kidneys and ureters: The kidneys appear intact without evidence for acute traumatic injury. No hydronephrosis. Stomach and bowel: No evidence for acute traumatic bowel injury. No bowel obstruction. The stomach is nearly fully distended with retained oral contents. Hiatal hernia noted. No definite significant asymmetric mucosal thickening. PELVIS: Appendix: Not evaluated. Bladder: Unremarkable. No mass. Reproductive: Unremarkable as visualized. ABDOMEN and PELVIS: Intraperitoneal space: Unremarkable. No free air. No significant fluid collection. Retroperitoneal space: No evidence for retroperitoneal hematoma. Bones/joints: The lumbar spine, pelvic bones and proximal femurs are intact. Multilevel degenerative changes of the lumbar spine with scoliosis of the thoracolumbar region. No acute fracture. No dislocation. Soft tissues: No significant overlying acute traumatic soft tissue abnormality identified. Vasculature: The aorta is normal in caliber without evidence for traumatic injury. No dissection. No evidence for acute periaortic abnormality. Lymph nodes: Unremarkable. No enlarged lymph nodes. IMPRESSION: No significant acute traumatic injury involving the abdomen or pelvis. Electronically signed by: Ben Sutton MD 01/18/25 22:22 PM
[2025-01-18] MEDS: HYDROmorphone INJ 0.5 MG/0.5 ML SYR IV STA (22:28)
--- NOTE | 2025-01-18 22:29 | CT Scan Report ---
Exam(s): CT C SPINE EXAM: CT Cervical Spine Without Intravenous Contrast CLINICAL HISTORY: Trauma. TECHNIQUE: Axial computed tomography images of the cervical spine without intravenous contrast. CTDI is 26.96 mGy and DLP is 42.28 mGy-cm. Automated exposure control was utilized for the study. A dose lowering technique was utilized adhering to the principles of ALARA. COMPARISON: No relevant prior studies available. FINDINGS: Vertebrae: The vertebral bodies are intact without acute osseous traumatic injury. No anterolisthesis or retrolisthesis is identified. The facet joints are well aligned without subluxation or dislocation. The pedicles, transverse processes and spinous processes are intact. Bilateral chronic mild to moderate facet hypertrophic arthropathy incidentally noted. Discs/spinal canal/neural foramina: Incidental chronic appearing mild multilevel disc spondylosis noted with narrowing and marginal hypertrophic changes. No significant acute central canal stenosis identified. Other bones/joints: Displaced comminuted left clavicle fracture noted. Soft tissues: Hyperdense subcutaneous fat stranding surrounding the left clavicle fracture. The unenhanced soft tissues of the cervical region are otherwise unremarkable. IMPRESSION: 1. No acute osseous traumatic injury or significant acute traumatic abnormal alignment involving the cervical spine. 2. Displaced comminuted left clavicle fracture noted. Surrounding subcutaneous fat stranding. Electronically signed by: Ben Sutton MD 01/18/25 22:28 PM
[2025-01-18] MEDS: ACETAMINOPHEN 1,000 MG/100 ML VIAL IV STA (23:34)
--- NOTE | 2025-01-19 02:00 | History & Physical Report ---
Date of Service January 19, 2025 Assessment & Plan (1) Trauma: Plan: 75-year-old female with past medical history significant for dyslipidemia, prediabetes, sleep apnea, Raynaud's syndrome, hypertension, history of kidney stone, history of DVT, GERD anxiety disorder presents with fall. Patient was on seesaw and on her way back down she fell to the left side and landed on the ground. Struck her left side of the head. No loss of consciousness. Was complaining of left side rib pain and back pain. Imaging studies in the ER showed left clavicle and left eighth rib fracture. Left shoulder is in sling. Currently pain is under control. Denies any headache currently. No blurred vision. No earache or runny nose or sore throat. No cough. Afebrile. Denies any chest pain or shortness of breath. No nausea currently. No abdominal pain currently. Hemodynamics okay. Trauma Status post fall from seesaw CT head no acute findings CT chest acute fracture involving the posterior and lateral aspect of the eighth rib. Displaced commuted fracture involving the medial aspect of the left clavicle. CT cervical spine. No acute findings CT abdomen pelvis no acute findings Pain control Ortho consult History of hypertension Continue amlodipine and lisinopril Will monitor Hyperlipidemia On pravastatin Sleep apnea On CPAP nightly DVT prophylaxis Lovenox Disposition Observation medical floor Full code. History of Present Illness Chief Complaint: Status post fall and left clavicle and left eighth rib fracture Primary Care Provider: Jimmy Ferreira MD 75-year-old female with past medical history significant for dyslipidemia, prediabetes, sleep apnea, Raynaud's syndrome, hypertension, history of kidney stone, history of DVT, GERD anxiety disorder presents with fall. Patient was on seesaw and on her way back down she fell to the left side and landed on the ground. Struck her left side of the head. No loss of consciousness. Was complaining of left side rib pain and back pain. Imaging studies in the ER showed left clavicle and left eighth rib fracture. Left shoulder is in sling. Currently pain is under control. Denies any headache currently. No blurred vision. No earache or runny nose or sore throat. No cough. Afebrile. Denies any chest pain or shortness of breath. No nausea currently. No abdominal pain currently. Hemodynamics okay. Past medical history. As mentioned above Past surgical history. Bilateral knee arthroplasty. Bilateral cataract surgery. Colonoscopy. Total hysterectomy. Social history. . No smoking. No alcohol use. No drug use. Family history. Father had colon cancer. Daughter had lymphoma. Thyroid cancer. Heart valve replacement. Mother had uterine cancer. Allergies Allergy/AdvReac Type Severity Reaction Status Date / Time Sulfa (Sulfonamide Allergy Severe Hives Verified 11/17/22 08:41 Antibiotics) latex Allergy Intermediate Blister Verified 11/17/22 08:41 adhesive AdvReac Mild Rash Verified 11/17/22 08:41 Home Medications Medication Instructions Recorded Confirmed Type amlodipine 2.5 mg tablet 2.5 mg PO DAILY 01/19/25 01/19/25 History lisinopril 10 mg tablet 10 mg PO DAILY 01/19/25 01/19/25 History pravastatin 40 mg tablet 40 mg PO PM 01/19/25 01/19/25 History Past Med/Surg History Problem List (Updated 01/18/25 @ 23:26 by Alissa Sumner MD) Trauma (Acute) Fracture of clavicle (Acute) Fracture of left sixth rib (Acute) Fracture of left eighth rib (Acute) Accidental injury by fall involving riccardo totter (Acute) History of colonoscopy Encounter for pre-operative examination Elevated glucose Per records Primary osteoarthritis of right knee DVT prophylaxis Urinary symptom or sign Calculus of ureterovesical junction (UVJ) Hydronephrosis, right Primary osteoarthritis of left knee Prediabetes Hyperlipidemia Hypertension controlled, stable per pt Medical History History of COVID-19 May 27, 2020 -- cold symptoms. no problems currently. Hx of deep venous thrombosis left ankle s/p left TKA in 12/2021. treated with blood thinners for 2 months. all resolved. Hyperlipidemia Hypertension controlled, stable per pt Nausea and vomiting after administration of anesthetic agent just with hysterectomy Prediabetes Raynauds syndrome Per records Sleep apnea cpap-compliant Surgical History History of colonoscopy History of hysterectomy History of left knee replacement History of right cataract surgery History of right knee joint replacement 10/30/20: SAB at L3-L4 1 attempt + PNB. No postop issues per anesthesia progress note. History of tooth extraction Hx of removal of cyst from thumb/neck> both benign Family History Mother Myocardial infarction, Onset Age: 60 Cancer Uterine Father Colorectal cancer Other No family history of adverse response to anesthesia Social History Smoking Status: Never smoker Second Hand Exposure: No; Do You Dip or Chew Tobacco: No; Hx Alcohol Use: No Hx Substance Use: No Preferred Language: Albanian Communication Ability: Effective [employer] Sales Representative Required: No Beliefs That Will Affect Care: None marital status: Current Living Situation: Family Current Living Situation Comment: , 2 adult children Feels Safe at Home: Yes Safety Concerns: Feels Safe At This Time Assistive Devices: CPAP and Glasses Review of Systems Review of Systems: All systems reviewed & are unremarkable except as noted in HPI & below Physical Exam Physical Exam: General- Not in distress Head- atraumatic Eyes- PERRL. ENT- oropharynx clear Neck- supple, no JVD. Lungs- clear to auscultation no wheezing or crackles. Heart- regular rhythm; no murmur, no gallop. Abdomen- normal bowel sounds, soft, nontender, no distension Extremities- no pretibial edema, no erythema seen. right shoulder and arm in sling Neuro- alert, oriented PERRL, no facial palsy; no dysarthria; moves extremities Results & Data Results & Data Vital Signs (Past 12 Hours) Vital Signs Temp Pulse Pulse Resp BP BP Pulse Ox 01/19/25 01:00 89 16 135/82 98 01/19/25 00:34 93 H 01/19/25 00:00 92 H 21 160/94 H 100 01/18/25 23:00 36.7 C 90 22 134/87 99 01/18/25 22:32 36.8 C 87 24 152/86 H 92 01/18/25 22:00 98 H 26 H 96 01/18/25 21:02 92 01/18/25 21:00 101 H 23 96 01/18/25 20:46 37.0 C 94 H 22 165/102 H 95 01/18/25 20:42 97 H O2 Del Method O2 Flow Rate 01/19/25 01:00 Nasal Cannula 2 01/19/25 00:34 01/19/25 00:00 Nasal Cannula 2 01/18/25 23:00 Room Air 01/18/25 22:32 Room Air 0 01/18/25 22:00 Room Air 01/18/25 21:02 Room Air 01/18/25 21:00 Room Air 01/18/25 20:46 Room Air 01/18/25 20:42 Diagnostic Findings Laboratory Results WBC 5.06 K/ul (4.8-10.8) 01/18/25 20:47 RBC 4.19 M/uL (4.20-5.40) L 01/18/25 20:47 Hgb 12.4 g/dl (12.0-16.0) 01/18/25 20:47 POC Hgb 11.9 g/dl (12.0-16.0) L 01/18/25 21:05 Hct 35.7 % (37.0-47.0) L 01/18/25 20:47 POC Hct 35 % (37-47) L 01/18/25 21:05 MCV 85.2 fL (80.0-100.0) 01/18/25 20:47 MCH 29.6 pg (25.0-34.0) 01/18/25 20:47 MCHC 34.7 g/dL (32.0-36.0) 01/18/25 20:47 RDW Std Deviation 39.1 fL (36.4-46.3) 01/18/25 20:47 RDW Coeff of Erika 12.7 % (11.5-14.5) 01/18/25 20:47 Plt Count 182 K/uL (130-400) 01/18/25 20:47 MPV 9.7 fL (9.4-12.4) 01/18/25 20:47 Immature Gran % (Auto) 1.2 % 01/18/25 20:47 Neut % (Auto) 61.2 % 01/18/25 20:47 Lymph % (Auto) 25.3 % 01/18/25 20:47 [place] % (Auto) 8.7 % 01/18/25 20:47 Eos % (Auto) 3.0 % 01/18/25 20:47 Baso % (Auto) 0.6 % 01/18/25 20:47 Neut # (Auto) 3.10 K/uL (1.40-6.50) 01/18/25 20:47 Lymph # (Auto) 1.28 K/uL (1.20-3.40) 01/18/25 20:47 [place] # (Auto) 0.44 K/uL (0.11-0.59) 01/18/25 20:47 Eos # (Auto) 0.15 K/uL (0.00-0.50) 01/18/25 20:47 Baso # (Auto) 0.03 K/uL (0.00-0.20) 01/18/25 20:47 Immature Gran # (Auto) 0.06 K/uL (0.01-0.20) 01/18/25 20:47 PT 10.5 Seconds (9.0-12.0) 01/18/25 20:47 INR 1.0 (0.9-1.1) 01/18/25 20:47 APTT 22 Seconds (21-31) 01/18/25 20:47 PTT Ratio 0.8 01/18/25 20:47 POC Sodium 141 mmol/L (135-144) 01/18/25 21:05 Sodium 140 mmol/L (136-145) 01/18/25 20:47 POC Potassium 3.8 mmol/L (3.3-5.0) 01/18/25 21:05 Potassium 3.7 mmol/L (3.5-5.1) 01/18/25 20:47 POC Chloride 106 mmol/L (101-112) 01/18/25 21:05 Chloride 108 mmol/L (98-107) H 01/18/25 20:47 Carbon Dioxide 26 mmol/L (21-32) 01/18/25 20:47 POC Total CO2 24 mmol/L (24-31) 01/18/25 21:05 Anion Gap 6 (3-11) 01/18/25 20:47 POC Anion Gap 15.0 mmol/L (16-25) L 01/18/25 21:05 POC BUN 19 mg/dl (7-18) H 01/18/25 21:05 BUN 19 mg/dl (6-23) 01/18/25 20:47 Creatinine 0.93 mg/dl (0.6-1.2) 01/18/25 20:47 POC Creatinine 1.1 mg/dl (0.6-1.3) 01/18/25 21:05 Est Cr Clr Drug Dosing 50.3 ml/min 01/18/25 20:47 eGFR 64.90 01/18/25 20:47 BUN/Creatinine Ratio 20.4 (10-20) H 01/18/25 20:47 Glucose 135 mg/dl (70-99(Fasting)) H 01/18/25 20:47 POC Glucose (other) 136 mg/dl (70-99) H 01/18/25 21:05 Calcium 9.7 mg/dl (8.6-10.3) 01/18/25 20:47 POC Ioniz Calcium Christian 1.23 mmol/l (1.12-1.32) 01/18/25 21:05 Total Bilirubin 0.3 mg/dl (0.2-1.0) 01/18/25 20:47 AST 26 U/L (13-39) 01/18/25 20:47 ALT 21 U/L (7-52) 01/18/25 20:47 Alkaline Phosphatase 91 U/L (34-104) 01/18/25 20:47 Total Creatine Kinase 225 U/L (26-192) H 01/18/25 20:47 Troponin I High Sens 4.3 pg/ml (0-14) 01/18/25 20:47 Total Protein 6.6 gm/dl (6.0-8.3) 01/18/25 20:47 Albumin 3.8 gm/dl (3.4-5.0) 01/18/25 20:47 Globulin 2.8 gm/dl (2.5-4.0) 01/18/25 20:47 Albumin/Globulin Ratio 1.4 (0.9-2) 01/18/25 20:47 Lipase 53 U/L (11-82) 01/18/25 20:47 Impressions Chest X-Ray 01/18/25 21:02 Exam(s): XR CXR 1 VIEW EXAM: XR Chest, 1 View CLINICAL HISTORY: Trauma. TECHNIQUE: Frontal view of the chest. COMPARISON: Chest two-view 12/10/2021 FINDINGS: Lungs: No definite pulmonary contusive injury or focal consolidation. Pleural space: No definite pleural effusion or pneumothorax, accounting for limitations with supine technique. Heart: Unremarkable. No cardiomegaly. Mediastinum: No evidence for mediastinal widening. No tracheal deviation. Bones/joints: No definite acute osseous traumatic injury. Degenerative changes incidentally noted with scoliosis, convex left involving the thoracolumbar spine. IMPRESSION: No radiographic evidence for significant acute traumatic injury involving the chest/thorax. Electronically signed by: Ben Sutton MD 01/18/25 22:13 PM Abdomen/Pelvis CT 01/18/25 21:03 Exam(s): CT ABDOMEN + PELVIS With Contrast IV Amt: 90 ML OPTIRAY 320 EXAM: CT Abdomen and Pelvis With Intravenous Contrast CLINICAL HISTORY: Trauma. TECHNIQUE: Axial computed tomography images of the abdomen and pelvis with intravenous contrast. CTDI is 63.46 mGy and DLP is 4073.44 mGy-cm. Automated exposure control was utilized for the study. A dose lowering technique was utilized adhering to the principles of ALARA. CONTRAST: Patient received 90 ML OPTIRAY 320 of IV contrast COMPARISON: CT abdomen and pelvis with contrast 12/21/2020 FINDINGS: Limitations: There is respiratory artifact, which degrades image quality on multiple image slices. Lung bases: For findings regarding the lung bases, please see the CT report of the chest performed concurrently. ABDOMEN: Liver: The liver is intact without evidence for acute traumatic injury. Hepatic cysts incidentally noted, not significantly altered from the prior examination. Gallbladder and bile ducts: Unremarkable. No calcified stones. No ductal dilation. Pancreas: Unremarkable. No mass. No ductal dilation. Spleen: The spleen is intact without evidence for acute traumatic injury. Adrenals: Unremarkable. No mass. Kidneys and ureters: The kidneys appear intact without evidence for acute traumatic injury. No hydronephrosis. Stomach and bowel: No evidence for acute traumatic bowel injury. No bowel obstruction. The stomach is nearly fully distended with retained oral contents. Hiatal hernia noted. No definite significant asymmetric mucosal thickening. PELVIS: Appendix: Not evaluated. Bladder: Unremarkable. No mass. Reproductive: Unremarkable as visualized. ABDOMEN and PELVIS: Intraperitoneal space: Unremarkable. No free air. No significant fluid collection. Retroperitoneal space: No evidence for retroperitoneal hematoma. Bones/joints: The lumbar spine, pelvic bones and proximal femurs are intact. Multilevel degenerative changes of the lumbar spine with scoliosis of the thoracolumbar region. No acute fracture. No dislocation. Soft tissues: No significant overlying acute traumatic soft tissue abnormality identified. Vasculature: The aorta is normal in caliber without evidence for traumatic injury. No dissection. No evidence for acute periaortic abnormality. Lymph nodes: Unremarkable. No enlarged lymph nodes. IMPRESSION: No significant acute traumatic injury involving the abdomen or pelvis. Electronically signed by: Ben Sutton MD 01/18/25 22:[address] 01/18/25 21:03 Exam(s): CT C SPINE EXAM: CT Cervical Spine Without Intravenous Contrast CLINICAL HISTORY: Trauma. TECHNIQUE: Axial computed tomography images of the cervical spine without intravenous contrast. CTDI is 26.96 mGy and DLP is 42.28 mGy-cm. Automated exposure control was utilized for the study. A dose lowering technique was utilized adhering to the principles of ALARA. COMPARISON: No relevant prior studies available. FINDINGS: Vertebrae: The vertebral bodies are intact without acute osseous traumatic injury. No anterolisthesis or retrolisthesis is identified. The facet joints are well aligned without subluxation or dislocation. The pedicles, transverse processes and spinous processes are intact. Bilateral chronic mild to moderate facet hypertrophic arthropathy incidentally noted. Discs/spinal canal/neural foramina: Incidental chronic appearing mild multilevel disc spondylosis noted with narrowing and marginal hypertrophic changes. No significant acute central canal stenosis identified. Other bones/joints: Displaced comminuted left clavicle fracture noted. Soft tissues: Hyperdense subcutaneous fat stranding surrounding the left clavicle fracture. The unenhanced soft tissues of the cervical region are otherwise unremarkable. IMPRESSION: 1. No acute osseous traumatic injury or significant acute traumatic abnormal alignment involving the cervical spine. 2. Displaced comminuted left clavicle fracture noted. Surrounding subcutaneous fat stranding. Electronically signed by: Ben Sutton MD 01/18/25 22:[address] 01/18/25 21:03 Exam(s): CT CHEST With Contrast IV Amt: 90 ML OPTIRAY 320 EXAM: CT Chest With Intravenous Contrast CLINICAL HISTORY: Trauma. TECHNIQUE: Axial computed tomography images of the chest with intravenous contrast. CTDI is 63.46 mGy and DLP is 4073.44 mGy-cm. Automated exposure control was utilized for the study. A dose lowering technique was utilized adhering to the principles of ALARA. CONTRAST: Patient received 90 ML OPTIRAY 320 of IV contrast COMPARISON: No relevant prior studies available. FINDINGS: Lungs: No definite pulmonary contusive injury or focal consolidation identified. No definite focal airspace consolidation with curvilinear changes noted involving the posterior lower lobes. No significant pulmonary contusive injury. Pleural space: Unremarkable. No significant effusion. No pneumothorax. Heart: The cardiac chambers are normal in size. No pericardial effusion. No significant coronary artery calcifications. Mediastinum: No mediastinal traumatic injury. There is mild fluid distention of the esophagus. No esophageal mucosal thickening identified. Bones/joints: There is an acute fracture involving the posterior and lateral aspect of the left 8th rib. Subtle offset involving the lateral 6th rib is also noted. There is a displaced comminuted fracture involving the medial aspect of the left clavicle. The thoracic spine is intact without acute traumatic injury. Chronic anterior wedging, multilevel degenerative changes and scoliosis noted. No definite displaced right rib fractures. The included shoulders are otherwise unremarkable. Soft tissues: Fat stranding noted about the clavicle fracture. No radiopaque foreign body or subcutaneous emphysema. Vasculature: The thoracic aorta is normal in caliber without evidence for acute periaortic traumatic injury. No dissection or aneurysm. Lymph nodes: Unremarkable. No enlarged lymph nodes. IMPRESSION: 1. There is an acute fracture involving the posterior and lateral aspect of the left 8th rib. Subtle offset involving the lateral 6th rib is also noted. There is a displaced comminuted fracture involving the medial aspect of the left clavicle. Surrounding fat stranding noted about the left clavicle. No radiopaque foreign body. 2. No pulmonary contusive injury with incidental subsegmental atelectatic changes in the posterior lower lobes. No pleural effusion or pneumothorax. Electronically signed by: Ben Sutton MD 01/18/25 22:[address] 01/18/25 21:03 Exam(s): CT HEAD Without Contrast EXAM: CT Head Without Intravenous Contrast CLINICAL HISTORY: trauma. TECHNIQUE: Axial computed tomography images of the head/brain without intravenous contrast. CTDI is 63.96 mGy and DLP is 4073.44 mGy-cm. Automated exposure control was utilized for the study. A dose lowering technique was utilized adhering to the principles of ALARA. COMPARISON: No relevant prior studies available. FINDINGS: Brain: Unremarkable. No hemorrhage. No significant white matter disease. No edema. Ventricles: Unremarkable. No ventriculomegaly. Bones/joints: Unremarkable. No acute fracture. Soft tissues: No significant overlying soft tissue traumatic injury identified. No radiopaque foreign body or subcutaneous emphysema. Sinuses: Unremarkable as visualized. No acute sinusitis. Mastoid air cells: Unremarkable as visualized. No mastoid effusion. IMPRESSION: No acute intracranial process identified. Electronically signed by: Ben Sutton MD 01/18/25 22:14 PM ECG Additional Comments: ECG. Sinus tachycardia rate of 102. Nonspecific ST and T wave abnormality. No significant changes found. QTc 471. Code Status & VTE Plan VTE Prophylaxis Plan VTE Prophylaxis will be ordered: Yes
[2025-01-19] MEDS ORDERED: ACETAMINOPHEN 325 MG TAB PO PRN (02:52)
[2025-01-19] MEDS ORDERED: POLYETHYLENE (MIRALAX) 17 GM PACK PO PRN (02:52)
[2025-01-19] MEDS: SODIUM CHLORIDE 0.9% 1,000 ML IV SCH (04:07)
[2025-01-19 07:38] LABS: Hematocrit (blood only) 33.8 % (37.0-47.0); Hemoglobin 11.4 g/dl (12.0-16.0); Immature Granulocytes # (auto) 0.03 K/uL (0.01-0.20); Immature Granulocytes % (auto) 0.4 %; Mean Corpuscular Hemoglobin 28.9 pg (25.0-34.0); Mean Corpuscular Volume 85.8 fL (80.0-100.0); Platelet Count 181 K/uL (130-400); RDW Standard Deviation 40.3 fL (36.4-46.3); Red Blood Count 3.94 M/uL (4.20-5.40); White Blood Count 7.63 K/ul (4.8-10.8)
[2025-01-19 07:57] LABS: Anion Gap 6.0 (3-11); Blood Urea Nitrogen 19.0 mg/dl (6-23); Calcium 9.7 mg/dl (8.6-10.3); Carbon Dioxide 26.0 mmol/L (21-32); Chloride 108.0 mmol/L (98-107); Creatinine Clr Calc Pharmacy 62.4 ml/min; Glucose 124.0 mg/dl (70-99(Fasting)); Magnesium 2.0 mg/dl (1.7-2.4); Potassium 4.1 mmol/L (3.5-5.1); Sodium 140.0 mmol/L (136-145)
--- NOTE | 2025-01-19 08:16 | Orthopedic Consultation ---
Date of Consultation January 19, 2025 Assessment & Plan (1) Fracture of clavicle: (2) Fracture of left sixth rib: (3) Accidental injury by fall involving riccardo totter: (4) Elevated glucose: (5) Prediabetes: (6) Hyperlipidemia: (7) Hypertension: Plan This is a 75-year-old female who presents to the emergency department after a fall off of a seesaw. During the fall she sustained a fracture of her left clavicle and fractures of her left-sided rib cage. I do long discussion the patient regarding her clavicle shaft fracture. We discussed in great detail the pathoanatomy, pathophysiology, treatment options. I expressed to the patient that in general, clavicle shaft fractures can be managed successfully nonoperatively provided that they have appropriate immobilization. Patient is currently wearing a sling and I would instead recommend a clavicle strap for this. We have placed an order for her to be fitted with 1. I did discuss with the patient clavicle shaft fractures in general. Fracture is the medial side and can be somewhat concerning as they can cause neurovascular damage and/or airway compromise. The patient is not dealing with any of these issues at current. The patient is being managed by the medical team for her rib fractures. With regards to her left clavicle, I would recommend a clavicle strap and that she be nonweightbearing on the left upper extremity. We will initiate early range of motion of the shoulder and elbow to prevent stiffness and I will plan to see her in the office in 1 to 2 weeks for repeat radiographs. History of Present Illness Reason for Consultation: left shoulder pain Attending Physician: Selwyn Hairston MD History of Present Illness 75-year-old female with past medical history significant for dyslipidemia, prediabetes, sleep apnea, Raynaud's syndrome, hypertension, history of kidney stone, history of DVT, GERD anxiety disorder presents with fall. Patient was on seesaw and on her way back down she fell to the left side and landed on the ground. Struck her left side of the head. No loss of consciousness. Was complaining of left side rib pain and back pain. Imaging studies in the ER showed left clavicle and left eighth rib fracture. Left shoulder is in sling currently. Currently pain is under control. Denies any headache currently. No blurred vision. No earache or runny nose or sore throat. No cough. Afebrile. Denies any chest pain or shortness of breath. No nausea currently. No abdominal pain currently. This morning, the patient notes she feels,. She denies any numbness or tingling in the arm. She denies any dyspnea. She denies any additional areas of pain. Allergies Allergy/AdvReac Type Severity Reaction Status Date / Time Sulfa (Sulfonamide Allergy Severe Hives Verified 11/17/22 08:41 Antibiotics) latex Allergy Intermediate Blister Verified 11/17/22 08:41 adhesive AdvReac Mild Rash Verified 11/17/22 08:41 Home Medications Medication Instructions Recorded Confirmed Type amlodipine 2.5 mg tablet 2.5 mg PO DAILY 01/19/25 01/19/25 History lisinopril 10 mg tablet 10 mg PO DAILY 01/19/25 01/19/25 History pravastatin 40 mg tablet 40 mg PO PM 01/19/25 01/19/25 History Patient History Medical History History of COVID-19 May 27, 2020 -- cold symptoms. no problems currently. Hx of deep venous thrombosis left ankle s/p left TKA in 12/2021. treated with blood thinners for 2 months. all resolved. Hyperlipidemia Hypertension controlled, stable per pt Nausea and vomiting after administration of anesthetic agent just with hysterectomy Prediabetes Raynauds syndrome Per records Sleep apnea cpap-compliant Surgical History History of colonoscopy History of hysterectomy History of left knee replacement History of right cataract surgery History of right knee joint replacement 10/30/20: SAB at L3-L4 1 attempt + PNB. No postop issues per anesthesia progress note. 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 No open wounds appreciated. Patient demonstrates intact AIN, PIN, radial, median, ulnar Nerve motor function. She is sensation intact to light touch C5-T1. Results & Data Vital Signs (Past 12 Hours) Vital Signs Temp Pulse Pulse Resp BP BP Pulse Ox 01/19/25 07:26 81 19 131/76 99 01/19/25 07:06 77 01/19/25 05:35 88 16 141/90 H 98 01/19/25 04:00 87 21 131/75 100 01/19/25 03:00 86 21 132/75 99 01/19/25 02:00 100 H 23 164/97 H 99 01/19/25 01:00 89 16 135/82 98 01/19/25 00:34 93 H 01/19/25 00:00 92 H 21 160/94 H 100 01/18/25 23:00 36.7 C 90 22 134/87 99 01/18/25 22:32 36.8 C 87 24 152/86 H 92 01/18/25 22:00 98 H 26 H 96 01/18/25 21:02 92 01/18/25 21:00 101 H 23 96 01/18/25 20:46 37.0 C 94 H 22 165/102 H 95 01/18/25 20:42 97 H O2 Del Method O2 Flow Rate 01/19/25 07:26 Nasal Cannula 2 01/19/25 07:06 01/19/25 05:35 Nasal Cannula 2 01/19/25 04:00 Nasal Cannula 2 01/19/25 03:00 Nasal Cannula 2 01/19/25 02:00 Nasal Cannula 2 01/19/25 01:00 Nasal Cannula 2 01/19/25 00:34 01/19/25 00:00 Nasal Cannula 2 01/18/25 23:00 Room Air 01/18/25 22:32 Room Air 0 01/18/25 22:00 Room Air 01/18/25 21:02 Room Air 01/18/25 21:00 Room Air 01/18/25 20:46 Room Air 01/18/25 20:[address] scan of the chest and x-rays of the left clavicle personally interpreted and reviewed. These demonstrate a medial clavicular shaft fracture that is quite comminuted.
[2025-01-19] MEDS ORDERED: NALOXONE HCL 0.4 MG/1 ML VIAL/CARP IV PRN (08:17)
--- NOTE | 2025-01-19 09:05 | XRay Report ---
EXAM: XR shoulder LT min 2V routine CLINICAL HISTORY: L clavicle fx. TECHNIQUE: X-ray images of the left shoulder were obtained in anteroposterior (AP), axial and Y-view projections. COMPARISON: No prior studies available for comparison. FINDINGS: Bone Structure: Comminuted displaced fractures in medial one third of left clavicle with overlying soft tissue swelling. Fracture of left fifth rib. Generalized osteopenia. Humeral head is properly positioned in the glenoid fossa. No osseous lesions or abnormalities identified. Joint Spaces: Degenerative changes in glenohumeral and acromioclavicular joints. No evidence of joint effusion or subluxation. Soft Tissues: Mild haziness in left lower hemithorax. No gross pneumothorax seen. IMPRESSION: 1. Comminuted displaced fractures in medial one third of left clavicle with overlying soft tissue swelling. 2. Fracture of left fifth rib. 3. Degenerative changes in glenohumeral and acromioclavicular joints. Disclaimer: A subtle bone abnormality or fracture may not be readily apparent on X-rays, thus clinical correlation and further imaging including follow-up CT, MRI, or follow-up X-rays are advised as needed. Electronically signed by Frank Teague 01-19-2025 09:04 AM
[2025-01-19] MEDS: HYDROmorphone INJ 0.5 MG/0.5 ML SYR IV PRN (10:20)
[2025-01-19] MEDS: ENOXAPARIN INJ 40 MG/0.4 ML SYR SQ SCH (11:13)
--- NOTE | 2025-01-19 11:47 | Electrocardiogram Report ---
Test Reason : Blood Pressure : */* mmHG Vent. Rate : 102 BPM Atrial Rate : 102 BPM P-R Int : 166 ms QRS Dur : 86 ms QT Int : 362 ms P-R-T Axes : 52 30 82 degrees QTcB Int : 471 ms Sinus tachycardia Nonspecific ST and T wave abnormality Abnormal ECG When compared with ECG of 10-Dec-2021 10:23, No significant change was found Confirmed by Raymond Martinez ([id number]) on 01/19/2025 11:46:01 AM Referred By: REFERRED SELF Confirmed By: Raymond Martinez
[2025-01-19] MEDS: DICLOFENAC SOD 1% GEL 100 GM TUBE EXT SCH (11:55)
[2025-01-19] MEDS: ONDANSETRON INJ 2 MG/ML 2 ML VIAL IV PRN (13:55)
--- NOTE | 2025-01-19 14:04 | Communication Note ---
Patient seen and examined at bedside. Patient doing ok today. In a lot of pain on her ribs. Otherwise doing fine and able to walk. Acute left rib fractures and left clavicular fracture. Rib fracture order set ordered. PT/OT ordered. Continue with pain control, start lidocaine patch. Date of Service: January 19, 2025
[2025-01-19] MEDS: LIDOCAINE 5% 1 PATCH TD SCH (14:30)
[2025-01-19 17:04] LABS: Appearance Urine Cloudy (Clear); Bacteria Urine Automated None Seen (None Seen); Cast Urine Automated 0-2 /lpf (0-2); Epithelial Cell Urine Auto 0-2 /hpf (0-2); Glucose Urine UA Negative (Negative); RBC Urine Automated 0-2 /hpf (0-2); WBC Urine Automated 0-5 /hpf (0-5)
[2025-01-19] MEDS: PRAVASTATIN SOD 40 MG TAB PO SCH (21:10)
[2025-01-19] MEDS: REMOVE LIDODERM PATCH SCH (21:11)
[2025-01-20] MEDS: ACETAMINOPHEN 500 MG TAB PO PRN (07:35)
--- NOTE | 2025-01-20 13:51 | Hospitalist Progress Note ---
Date of Service January 20, 2025 Assessment & Plan (1) Trauma: Plan: 75-year-old female with past medical history significant for dyslipidemia, prediabetes, sleep apnea, Raynaud's syndrome, hypertension, history of kidney stone, history of DVT, GERD anxiety disorder presents with fall. Patient was on seesaw and on her way back down she fell to the left side and landed on the ground. #Left Clavicular Fracture #Left Rib Fractures -Status post fall from seesaw -CT head no acute findings -CT chest acute fracture involving the posterior and lateral aspect of the eighth rib. Displaced commuted fracture involving the medial aspect of the left clavicle. -CT cervical spine. No acute findings -CT abdomen pelvis no acute findings Plan: -PT/OT recommending SNF, will discuss with case management -continue pain control -ortho consulted, appreciate recs -rib fracture order set, encourage incentive spirometry #HTN #HLD -Continue amlodipine and lisinopril -Will monitor -On pravastatin Sleep apnea -On CPAP nightly I spent a total of 40 minutes in direct patient care, including [id number] time with the patient and/or family, reviewing medical records, ordering and re viewing diagnostic tests, and coordinating care with other healthcare providers. This time includes: history taking, physical examination, medical decision making, counseling, ECG interpretation, imaging interpretation, lab interpretation, orders, and education, excluding time spent in the performance of separately billed services. Admission and Anticipated Discharge Date Admission Date: January 19, 2025 Subjective Patient seen and examined at bedside. Patient doing well today. States that she was winded after [place]. Pain much improved today. Review of Systems Review of Systems: CONSTITUTIONAL: fatigue EYES: Patient denies any visual symptoms. EARS, NOSE, AND THROAT: No difficulties with hearing. No symptoms of rhinitis or sore throat. CARDIOVASCULAR: Patient denies chest pains, palpitations, orthopnea and paroxysmal nocturnal dyspnea. RESPIRATORY: No dyspnea on exertion, no wheezing or cough. GI: No nausea, vomiting, diarrhea, constipation, abdominal pain, hematochezia or melena. : No urinary hesitancy or dribbling. No nocturia or urinary frequency. No abnormal urethral discharge. MUSCULOSKELETAL: No myalgias or arthralgias. NEUROLOGIC: No chronic headaches, no seizures. Patient denies numbness, tingling or weakness. PSYCHIATRIC: Patient denies problems with mood disturbance. No problems with anxiety. ENDOCRINE: No excessive urination or excessive thirst. DERMATOLOGIC: Patient denies any rashes or skin changes. Physical Exam Physical Exam: Gen: A&O 3 NAD HEENT: NCAT, EOMI, not icteric. External ears normal. No rhinorrhea. Moist mucous membranes. Neck: Supple, full range of motion, no observable masses, No meningeal sign. Lungs: No Respiratory distress. CV: RRR, no edema. Abdomen: Soft, nondistended, No rebound tenderness. MSK: left arm in sling Skin: No rashes, petechiae, lesions. Normal color per patient. Neuro: Normal Gait, Grossly intact. Psych: Appropriate for situation. Results & Data Results & Data Vital Signs (Past 12 Hours) Vital Signs Temp Pulse Resp BP Pulse Ox Pulse Ox Pulse Ox 01/20/25 13:12 90 93 01/20/25 12:46 95 01/20/25 07:56 36.9 C 88 20 133/83 96 01/20/25 07:30 O2 Del Method O2 Flow Rate O2 Flow Rate O2 Flow Rate 01/20/25 13:12 2 2 01/20/25 12:46 01/20/25 07:56 Nasal Cannula 2 01/20/25 07:30 Nasal Cannula, CPAP 2 Medications Administered Acetaminophen (Acetaminophen 500 Mg Tab) 1,000 mg PO Q8 PRN PRN Reason: pain/fever Stop: 02/18/25 02:51 Last Admin: 01/20/25 07:35 Dose: 1,000 mg Documented By: ANA Amlodipine Besylate (Amlodipine Besylate 5 Mg Tab) 2.5 mg PO DAILY [facility] Stop: 02/18/25 08:59 Last Admin: 01/20/25 08:41 Dose: 2.5 mg Documented By: Admin: 01/19/25 11:13 Dose: 2.5 mg Documented By: ANA Diclofenac Sodium (Diclofenac Sod 1% Gel 100 Gm Tube) 2 gm EXT Q12 [facility]; Protocol Stop: 02/18/25 08:59 Last Admin: 01/20/25 08:40 Dose: 2 gm Documented By: Admin: 01/19/25 21:10 Dose: 2 gm Documented By: Admin: 01/19/25 11:55 Dose: Not Given Documented By: [facility] Enoxaparin Sodium (Enoxaparin Inj 40 Mg/0.4 Ml Syr) 40 mg SQ Q24H [facility] Stop: 02/18/25 08:59 Last Admin: 01/20/25 08:42 Dose: 40 mg Documented By: Admin: 01/19/25 11:13 Dose: 40 mg Documented By: [facility] Hydromorphone HCl (Hydromorphone Inj 0.5 Mg/0.5 Ml Syr) 0.5 mg IV Q4 PRN PRN Reason: Breakthrough Pain Stop: 02/02/25 08:18 Last Admin: 01/20/25 04:43 Dose: 0.5 mg Documented By: Admin: 01/19/25 19:42 Dose: 0.5 mg Documented By: Admin: 01/19/25 10:20 Dose: 0.5 mg Documented By: [facility] Lidocaine (Lidocaine 5% 1 Patch) 1 patch TD QAM [facility] Stop: 02/18/25 14:14 Last Admin: 01/20/25 08:42 Dose: Not Given Documented By: Admin: 01/19/25 14:30 Dose: Not Given Documented By: [facility] Lisinopril (Lisinopril 10 Mg Tab) 10 mg PO DAILY [facility] Stop: 02/18/25 08:59 Last Admin: 01/20/25 08:41 Dose: 10 mg Documented By: Admin: 01/19/25 11:13 Dose: 10 mg Documented By: [facility] Miscellaneous (Remove Lidoderm Patch) 1 each N/A DAILY@2100 [facility] Stop: 02/18/25 20:59 Last Admin: 01/19/25 21:11 Dose: Not Given Documented By: OPAL Ondansetron HCl (Ondansetron Inj 2 Mg/Ml 2 Ml Vial) 4 mg IV Q6H PRN PRN Reason: Nausea And Vomiting Stop: 02/18/25 13:44 Last Admin: 01/19/25 13:55 Dose: 4 mg Documented By: [facility] Oxycodone HCl (Oxycodone Hcl Ir 5 Mg Tab (Immediate Release)) 5 mg PO Q4H PRN PRN Reason: Mod-Sev Pain (Scale 4-10) Stop: 02/02/25 02:51 Last Admin: 01/20/25 07:35 Dose: 5 mg Documented By: Admin: 01/19/25 21:11 Dose: 5 mg Documented By: Admin: 01/19/25 13:10 Dose: 5 mg Documented By: Admin: 01/19/25 06:11 Dose: 5 mg Documented By: ilan Pravastatin Sodium (Pravastatin Sod 40 Mg Tab) 40 mg PO PM [facility] Stop: 02/18/25 20:59 Last Admin: 01/19/25 21:10 Dose: 40 mg Documented By: OPAL
[2025-01-20 14:57] VITALS: O2SAT 96
[2025-01-20 23:32] VITALS: RESP 18
[2025-01-21 06:50] LABS: Hematocrit (blood only) 36.1 % (37.0-47.0); Hemoglobin 11.8 g/dl (12.0-16.0); Mean Corpuscular Hemoglobin 28.4 pg (25.0-34.0); Mean Corpuscular Volume 86.8 fL (80.0-100.0); Platelet Count 133 K/uL (130-400); RDW Standard Deviation 41.0 fL (36.4-46.3); Red Blood Count 4.16 M/uL (4.20-5.40); White Blood Count 6.94 K/ul (4.8-10.8)
[2025-01-21 07:13] LABS: Anion Gap 7.0 (3-11); Blood Urea Nitrogen 15.0 mg/dl (6-23); Calcium 9.3 mg/dl (8.6-10.3); Carbon Dioxide 26.0 mmol/L (21-32); Chloride 108.0 mmol/L (98-107); Creatinine Clr Calc Pharmacy 73.2 ml/min; Glucose 100.0 mg/dl (70-99(Fasting)); Potassium 3.9 mmol/L (3.5-5.1); Sodium 141.0 mmol/L (136-145)
[2025-01-21 07:21] VITALS: BP 112/70; TEMP 97.9
--- NOTE | 2025-01-21 08:25 | XRay Report ---
EXAM: Radiograph of the Chest 1 View INDICATION: Hypoxia TECHNIQUE: Frontal view of the chest. COMPARISON: CT chest 01/18/2025 FINDINGS: Lungs and pleural spaces: Shallow inspiration with no coarse linear atelectasis in both lung bases. No pleural effusion or pneumothorax. Heart: Shape and configuration within normal limits allowing for technique. Mediastinum: Normal contour. Bones/joints: Grossly stable left rib fractures. Scoliotic degenerative spine. Soft tissues: No abnormality noted. No radiopaque foreign body noted. Upper abdomen: No abnormality noted. IMPRESSION: Shallow inspiration with bilateral basilar atelectasis. ACT 112: N/A Electronically signed by Kaci Lino 01-21-2025 08:25 AM
[2025-01-21 12:51] VITALS: PULSE 87
--- NOTE | 2025-01-21 18:05 | Discharge Summary ---
Discharge Summary Date of Service January 21, 2025 Principal Dx & Hospital Course #1 = Principal Diagnosis (1) Trauma: 75-year-old female with past medical history significant for dyslipidemia, prediabetes, sleep apnea, Raynaud's syndrome, hypertension, history of kidney stone, history of DVT, GERD anxiety disorder presents with fall. Patient was on seesaw and on her way back down she fell to the left side and landed on the ground. #Left Clavicular Fracture #Left Rib Fractures -Status post fall from seesaw -CT head no acute findings -CT chest acute fracture involving the posterior and lateral aspect of the eighth rib. Displaced commuted fracture involving the medial aspect of the left clavicle. -CT cervical spine. No acute findings -CT abdomen pelvis no acute findings Plan: -PT/OT recommending SNF, will discuss with case management -continue pain control -ortho consulted, appreciate recs -rib fracture order set, encourage incentive spirometry #HTN #HLD -Continue amlodipine and lisinopril -Will monitor -On pravastatin Sleep apnea -On CPAP nightly Notes For Next Care Provider 75-year-old female with past medical history significant for dyslipidemia, prediabetes, sleep apnea, Raynaud's syndrome, hypertension, history of kidney stone, history of DVT, GERD anxiety disorder presents with fall. Admitted for mechanical fall off of a seasaw. Found to have left clavicular and left rib fractures. ORtho consulted, recommended sling and rehab. Patient was on oxygen, taken off after aggressive incentive spirometry. Rib fracture order set utilized. On 01/21/2025 patient medically stable for discharge to [facility]. To do: [] aggressive rehab [ ] f/u with ortho Medication Changes From Visit -pain medication Admission HPI Per Admitting Provider 75-year-old female with past medical history significant for dyslipidemia, prediabetes, sleep apnea, Raynaud's syndrome, hypertension, history of kidney stone, history of DVT, GERD anxiety disorder presents with fall. Patient was on seesaw and on her way back down she fell to the left side and landed on the ground. Struck her left side of the head. No loss of consciousness. Was complaining of left side rib pain and back pain. Imaging studies in the ER showed left clavicle and left eighth rib fracture. Left shoulder is in sling. Currently pain is under control. Denies any headache currently. No blurred vision. No earache or runny nose or sore throat. No cough. Afebrile. Denies any chest pain or shortness of breath. No nausea currently. No abdominal pain currently. Hemodynamics okay. Past medical history. As mentioned above Past surgical history. Bilateral knee arthroplasty. Bilateral cataract surgery. Colonoscopy. Total hysterectomy. Social history. . No smoking. No alcohol use. No drug use. Family history. Father had colon cancer. Daughter had lymphoma. Thyroid cancer. Heart valve replacement. Mother had uterine cancer. Discharge Exam Gen: A&O 3 NAD HEENT: NCAT, EOMI, not icteric. External ears normal. No rhinorrhea. Moist mucous membranes. Neck: Supple, full range of motion, no observable masses, No meningeal sign. Lungs: No Respiratory distress. CV: RRR, no edema. Abdomen: Soft, nondistended, No rebound tenderness. MSK: left arm in sling Skin: No rashes, petechiae, lesions. Normal color per patient. Neuro: Normal Gait, Grossly intact. Psych: Appropriate for situation. Updated Medication List Medication Instructions Recorded Confirmed Type amlodipine 2.5 mg tablet 2.5 mg PO DAILY 01/19/25 01/19/25 History lisinopril 10 mg tablet 10 mg PO DAILY 01/19/25 01/19/25 History pravastatin 40 mg tablet 40 mg PO PM 01/19/25 01/19/25 History acetaminophen 500 mg tablet 1,000 mg (2 x 500 mg) PO Q8 PRN 01/21/25 Rx (Tylenol Extra Strength) pain #60 tabs diclofenac sodium 1 % topical gel 2 g EXT Q12 #100 grams 01/21/25 Rx (Voltaren Arthritis Pain) lidocaine 5 % topical patch 1 patch transdermal QAM #30 ea 01/21/25 Rx oxycodone 5 mg tablet 5 mg PO Q4H PRN pain #30 tabs 01/21/25 Rx Hospital Stay Data Consultations 01/18/25 23:36 ED Decision to Admit Stat 01/19/25 08:00 Consult Orthopedic Surgery Routine Diagnostic Imagining Performed 01/18/25 21:03 CT abd pelvis IV con only Stat CT cervical spine wo con Stat CT chest diagnostic w con Stat CT head/brain wo con Stat Pending Results Patient Have Any Pending Studies at Discharge: No Discharge Instructions Given to Patient (Per Discharging Provider) Diagnosis: clavicular fracture, rib fractures 2/2 mechanical fall Follow Ups: PCP Incidentals: severe atelectasis 1. Please follow up with PCP. 2. Please stay hydrated! Total Time Total Time Spent Total Time Spent (In Minutes): I spent a total of 35 minutes in direct patient care, including [id number] time with the patient and/or family, reviewing medical records, ordering and reviewing diagnostic tests, and coordinating care with other healthcare providers. This time includes: history taking, physical examination, medical decision making, counseling, ECG interpretation, imaging interpretation, lab interpretation, orders, and education, excluding time spent in the performance of separately billed services.
== END 2025-01-21 13:40 | DRG 563 ==
LOC: EDINP 20:37 → ED 20:37 → 3E 01-19 02:52